=== PATIENT | female | born 1975 | race Caucasian/White ===

== ENCOUNTER → 2018-05-08 14:03 | Outpatient (CLI) | payer OTHER, SELFPAY ==
[2018-05-08 16:36] LABS: Alanine Aminotransferase 51 IU/L (9-52); Albumin 4.1 g/dL (3.5-5.0); Albumin Globulin Ratio 1.2 (1.0-2.8); Alkaline Phosphatase 132 U/L (38-126); Aspartate Aminotransferase 44 IU/L (14-36); Bilirubin Total 0.3 mg/dL (0.2-1.3); Blood Urea Nitrogen 6 mg/dL (7-17); Carbon Dioxide 30 mmol/L (22-32); Chloride 99 mmol/L (98-107); Cholesterol 232 mg/dL (140-199); Estimated Glomerular Filt Rate > 60.0 mL/min (>60); Globulin 3.3 g/dL (1.7-4.1); Glucose 132 mg/dL (70-100); HDL Cholesterol 51 mg/dL (40-60); HEMOLYSIS < 15 (0-50); LDL Cholesterol Calculated 132 mg/dL (<100); Potassium 3.1 mmol/L (3.4-5.1); Sodium 139 mmol/L (137-145); Total Protein 7.4 g/dL (6.3-8.2); Triglycerides 245 mg/dL (35-150)
[2018-05-08 17:39] LABS: Hemoglobin A1C% w Est Avg Glu 6.6 % (4.0-6.0)
== END ==
PROVIDERS: Visit Provider Internal Medicine
DX: E11.9 Type 2 diabetes mellitus without complications (principal); R94.5 Abnormal results of liver function studies; I10 Essential (primary) hypertension
CPT/HCPCS: 36415; 80053; 80061; 83036

== ENCOUNTER → 2018-08-28 15:43 | Outpatient (CLI) | payer OTHER, SELFPAY ==
--- NOTE | 2018-08-28 15:46 | DI.RAD.S_ITS ---
PROCEDURE: XR CHEST 2V INDICATIONS: chest pain TECHNIQUE: 2 views of the chest were acquired. COMPARISON: [facility], , CHEST 2 VIEW, 08/09/2011, 9:28. FINDINGS: Surgical changes and devices: None. Lungs and pleura: No pleural effusions or pneumothorax. Lungs are clear. Mediastinum: Mediastinal contours are normal. Heart size is normal. Bones and chest wall: No suspicious bony abnormalities. Soft tissues appear unremarkable. IMPRESSION: No trauma found, source of persistent pain is not seen. Dictated by: Jayson Molina M.D. on 08/28/2018 at 16:47 Approved by: Jayson Molina M.D. on 08/28/2018 at 16:47
[2018-08-28 16:39] LABS: Add Manual Diff / Slide Review NO; Basophils Percent Auto 0.6 % (0-2); Eosinophils Percent Auto 2.4 % (2-4); Hematocrit 36.7 % (36-46); Lymphocytes Percent Auto 44.2 % (25-40); Mean Corpuscular HGB Conc 32.7 % (30-36); Mean Corpuscular Hemoglobin 25.8 PG (26-34); Monocytes Percent Auto 4.9 % (3-14); Neutrophils Absolute Auto 4000 /uL (3000-5900); Neutrophils Percent Auto 47.9 % (50-75); Platelet Count 312 X10^3/uL (150-400); Red Blood Cell Count 4.64 X10^6/uL (4.0-5.2); White Blood Cell Count 8.4 X10^3/uL (4.5-11.0)
[2018-08-28 16:50] LABS: Hemoglobin A1C% w Est Avg Glu 7.2 % (4.0-6.0)
[2018-08-28 17:10] LABS: Alanine Aminotransferase 83 IU/L (9-52); Albumin Globulin Ratio 1.4 (1.0-2.8); Alkaline Phosphatase 106 U/L (38-126); Aspartate Aminotransferase 81 IU/L (14-36); BUN Creatinine Ratio 18.6 (6-22); Bilirubin Total 0.3 mg/dL (0.2-1.3); Blood Urea Nitrogen 13 mg/dL (7-17); C-Reactive Protein Quant 1.4 mg/dL (<1.0); Calcium 9.2 mg/dL (8.4-10.2); Carbon Dioxide 28 mmol/L (22-32); Chloride 103 mmol/L (98-107); Estimated Glomerular Filt Rate > 60.0 mL/min (>60); Globulin 2.9 g/dL (1.7-4.1); Glucose 136 mg/dL (70-100); HEMOLYSIS < 15 (0-50); Lipase 105 U/L (23-300); Sodium 142 mmol/L (137-145); Total Protein 6.9 g/dL (6.3-8.2)
[2018-08-28 17:35] LABS: Erythrocyte Sedimentation Rate 41 MM/HR (0-20)
[2018-08-28 17:38] LABS: TSH w/ Reflex to FT4 1.97 uIU/mL (0.47-4.68)
== END ==
PROVIDERS: PCP Family Medicine; Visit Provider Internal Medicine
DX: R07.9 Chest pain, unspecified (principal); E03.9 Hypothyroidism, unspecified; E11.9 Type 2 diabetes mellitus without complications; I10 Essential (primary) hypertension; R10.9 Unspecified abdominal pain
CPT/HCPCS: 36415; 71046; 80053; 83036; 83690; 84443; 85025; 85651; 86140

== ENCOUNTER → 2018-09-02 09:09 | Outpatient (CLI) | payer OTHER, SELFPAY ==
[2018-09-02 10:00] LABS: Creatine Kinase 41 U/L (30-135)
[2018-09-02 10:01] LABS: Cholesterol 193 mg/dL (140-199); HDL Cholesterol 43 mg/dL (40-60); HEMOLYSIS < 15 (0-50); LDL Cholesterol Calculated 127 mg/dL (<100); Potassium 4.3 mmol/L (3.4-5.1); Triglycerides 113 mg/dL (35-150)
== END ==
PROVIDERS: Internal Medicine; PCP Family Medicine; Visit Provider Physician Assistant
DX: E78.5 Hyperlipidemia, unspecified (principal); I10 Essential (primary) hypertension; M79.10 Myalgia, unspecified site
CPT/HCPCS: 36415; 80061; 82550; 84132

== ENCOUNTER → 2019-06-27 07:07 | Outpatient (CLI) | payer OTHER, SELFPAY ==
[2019-06-27 08:58] LABS: Alanine Aminotransferase 56 IU/L (9-52); Albumin 3.8 g/dL (3.5-5.0); Albumin Globulin Ratio 1.2 (1.0-2.8); Alkaline Phosphatase 143 U/L (38-126); Aspartate Aminotransferase 54 IU/L (14-36); Bilirubin Total 0.5 mg/dL (0.2-1.3); Blood Urea Nitrogen 12 mg/dL (7-17); Carbon Dioxide 28 mmol/L (22-32); Chloride 102 mmol/L (98-107); Estimated Glomerular Filt Rate > 60.0 mL/min (>60); Globulin 3.2 g/dL (1.7-4.1); Glucose 212 mg/dL (70-100); HEMOLYSIS < 15 (0-50); Potassium 4.1 mmol/L (3.4-5.1); Sodium 139 mmol/L (137-145)
== END ==
PROVIDERS: Visit Provider Specialist
DX: R74.8 Abnormal levels of other serum enzymes (principal)
CPT/HCPCS: 36415; 80053

== ENCOUNTER → 2019-07-09 06:58 | Outpatient (CLI) | payer OTHER, SELFPAY ==
[2019-07-09 08:34] LABS: Add Manual Diff / Slide Review NO; Basophils Absolute Auto 0 /uL (0-100); Basophils Percent Auto 0.6 % (0-2); Eosinophils Absolute Auto 200 /uL (0-450); Eosinophils Percent Auto 2.6 % (2-4); Hematocrit 37.5 % (36-46); Hemoglobin 12.3 g/dL (12.0-16.0); Lymphocytes Absolute Auto 3200 /uL (1100-4500); Lymphocytes Percent Auto 39.7 % (25-40); Mean Corpuscular HGB Conc 32.8 % (30-36); Mean Corpuscular Hemoglobin 26.1 PG (26-34); Mean Corpuscular Volume 79.6 fL (80-100); Monocytes Absolute Auto 400 /uL (0-900); Monocytes Percent Auto 4.5 % (3-14); Neutrophils Absolute Auto 4200 /uL (1500-7000); Neutrophils Percent Auto 52.6 % (50-75); Platelet Count 304 X10^3/uL (150-400)
[2019-07-09 09:07] LABS: Cholesterol 205 mg/dL (140-199); HDL Cholesterol 36 mg/dL (40-60); LDL Cholesterol Calculated 141 mg/dL (<100); Triglycerides 142 mg/dL (35-150)
[2019-07-09 09:34] LABS: TSH w/ Reflex to FT4 4.14 uIU/mL (0.47-4.68)
== END ==
PROVIDERS: Visit Provider Nurse Practitioner
DX: E03.9 Hypothyroidism, unspecified (principal); E11.9 Type 2 diabetes mellitus without complications; I10 Essential (primary) hypertension; Z87.442 Personal history of urinary calculi
CPT/HCPCS: 36415; 80061; 83036; 84443; 85025

== ENCOUNTER → 2019-07-24 13:11 | Outpatient (CLI) | payer OTHER, SELFPAY ==
[2019-07-24 14:10] LABS: Alanine Aminotransferase 97 IU/L (9-52); Albumin 3.9 g/dL (3.5-5.0); Albumin Globulin Ratio 1.2 (1.0-2.8); Alkaline Phosphatase 124 U/L (38-126); Aspartate Aminotransferase 84 IU/L (14-36); Bilirubin Total 0.7 mg/dL (0.2-1.3); Bilirubin Unconjugated 0.5 mg/dL (0.0-1.1); Globulin 3.2 g/dL (1.7-4.1); HEMOLYSIS < 15 (0-50); Total Protein 7.1 g/dL (6.3-8.2)
[2019-07-24 15:05] LABS: Free T3, Triiodothyronine Free 3.34 pg/mL (2.77-5.27); Free T4, Direct Thyroxine 1.33 ng/dL (0.78-2.19)
[2019-07-24 15:19] LABS: Thyroid Stimulating Hormone 2.11 uIU/mL (0.47-4.68)
[2019-07-26 16:13] LABS: Hepatitis A Antibody IgM NONREACTIVE; Hepatitis Acute Panel Interp 0.06; Hepatitis B Core Antibody IgM NONREACTIVE; Hepatitis B Surface Antigen NONREACTIVE; Hepatitis C Antibody NONREACTIVE
== END ==
PROVIDERS: Visit Provider Nurse Practitioner
DX: E03.9 Hypothyroidism, unspecified (principal); E11.9 Type 2 diabetes mellitus without complications; E66.9 Obesity, unspecified; I10 Essential (primary) hypertension; K75.81 Nonalcoholic steatohepatitis (NASH); R94.5 Abnormal results of liver function studies
CPT/HCPCS: 36415; 80074; 80076; 84439; 84443; 84481

== ENCOUNTER → 2019-11-17 08:41 | Outpatient (CLI) | payer OTHER, SELFPAY ==
[2019-11-17 09:15] LABS: Hemoglobin A1C% w Est Avg Glu 6.2 % (4.0-6.0)
[2019-11-17 09:26] LABS: Alanine Aminotransferase 48 IU/L (<35); Albumin 4.1 g/dL (3.5-5.0); Albumin Globulin Ratio 1.2 (1.0-2.8); Alkaline Phosphatase 136 U/L (38-126); Aspartate Aminotransferase 35 IU/L (14-36); Bilirubin Total 0.7 mg/dL (0.2-1.3); Bilirubin Unconjugated 0.6 mg/dL (0.0-1.1); Cholesterol 191 mg/dL (140-199); Globulin 3.3 g/dL (1.7-4.1); Glucose 112 mg/dL (70-100); HDL Cholesterol 45 mg/dL (40-60); HEMOLYSIS < 15 (0-50); LDL Cholesterol Calculated 131 mg/dL (<100); Total Protein 7.4 g/dL (6.3-8.2); Triglycerides 76 mg/dL (35-150)
[2019-11-17 10:08] LABS: Microalbumi Creatinin Ratio Ur 42.6 ug/mg CR (<30); Microalbumin Urine Random 11.9 mg/dL (0-1.6)
== END ==
PROVIDERS: PCP Nurse Practitioner; Referring Provider Nurse Practitioner; Visit Provider Nurse Practitioner
DX: E11.69 Type 2 diabetes mellitus with other specified complication (principal); E66.9 Obesity, unspecified; E78.5 Hyperlipidemia, unspecified; K75.81 Nonalcoholic steatohepatitis (NASH); Z68.34 Body mass index [BMI] 34.0-34.9, adult; E03.9 Hypothyroidism, unspecified; I10 Essential (primary) hypertension; R94.5 Abnormal results of liver function studies
CPT/HCPCS: 36415; 80061; 80076; 82043; 82570; 82947; 83036

== ENCOUNTER → 2020-06-24 06:51 | Outpatient (CLI) | payer OTHER, SELFPAY ==
[2020-06-24 08:48] LABS: Add Manual Diff / Slide Review NO; Basophils Absolute Auto 100 /uL (0-100); Basophils Percent Auto 0.8 % (0-2); Eosinophils Absolute Auto 200 /uL (0-450); Eosinophils Percent Auto 2.4 % (2-4); Hematocrit 38.2 % (36-46); Lymphocytes Absolute Auto 3100 /uL (1100-4500); Lymphocytes Percent Auto 44.6 % (25-40); Mean Corpuscular Hemoglobin 27.7 PG (26-34); Mean Corpuscular Volume 81.5 fL (80-100); Monocytes Absolute Auto 300 /uL (0-900); Neutrophils Absolute Auto 3300 /uL (1500-7000); Neutrophils Percent Auto 47.2 % (50-75); Platelet Count 300 X10^3/uL (150-400); Red Blood Cell Count 4.69 X10^6/uL (4.0-5.2); Red Cell Distribution Width 13.2 % (11.6-14.8)
[2020-06-24 08:52] LABS: Hemoglobin A1C% w Est Avg Glu 6.1 % (4.0-6.0)
[2020-06-24 09:03] LABS: Alanine Aminotransferase 32 IU/L (<35); Albumin 3.9 g/dL (3.5-5.0); Albumin Globulin Ratio 1.3 (1.0-2.8); Alkaline Phosphatase 103 U/L (38-126); Aspartate Aminotransferase 28 IU/L (14-36); BUN Creatinine Ratio 11.1 (6-22); Bilirubin Total 0.5 mg/dL (0.2-1.3); Blood Urea Nitrogen 6 mg/dL (7-17); Carbon Dioxide 30 mmol/L (22-32); Chloride 103 mmol/L (98-107); Cholesterol 182 mg/dL (140-199); Estimated Glomerular Filt Rate > 60.0 mL/min (>60); Glucose 108 mg/dL (70-100); HDL Cholesterol 46 mg/dL (40-60); HEMOLYSIS < 15 (0-50); LDL Cholesterol Calculated 115 mg/dL (<100); Potassium 4.5 mmol/L (3.4-5.1); Sodium 136 mmol/L (137-145); Total Protein 6.9 g/dL (6.3-8.2); Triglycerides 103 mg/dL (35-150)
[2020-06-24 09:23] LABS: Free T3, Triiodothyronine Free 3.33 pg/mL (2.77-5.27)
[2020-06-24 09:37] LABS: Thyroid Stimulating Hormone 3.35 uIU/mL (0.47-4.68)
[2020-06-24 09:49] LABS: Creatinine Urine Random 187.4 mg/dL
[2020-06-24 09:53] LABS: Microalbumi Creatinin Ratio Ur 20.2 ug/mg CR (<30); Microalbumin Urine Random 3.8 mg/dL (0-1.6)
== END ==
PROVIDERS: PCP Nurse Practitioner; Referring Provider Nurse Practitioner; Visit Provider Nurse Practitioner
DX: E03.9 Hypothyroidism, unspecified (principal); E11.9 Type 2 diabetes mellitus without complications; E66.9 Obesity, unspecified; G47.30 Sleep apnea, unspecified; I10 Essential (primary) hypertension; K75.81 Nonalcoholic steatohepatitis (NASH)
CPT/HCPCS: 36415; 80053; 80061; 82043; 82570; 83036; 84439; 84443; 84481; 85025

== ENCOUNTER → 2020-08-23 09:53 | Outpatient (CLI) | payer OTHER, SELFPAY ==
[2020-08-25 07:59] LABS: COVID19 Sendout Not Detected (Not Detect)
== END ==
PROVIDERS: PCP Nurse Practitioner; Visit Provider Physician Assistant
DX: Z11.59 Encounter for screening for other viral diseases (principal)
CPT/HCPCS: 87635

== ENCOUNTER → 2020-10-20 07:03 | Outpatient (CLI) | payer OTHER, SELFPAY ==
[2020-10-20 09:11] LABS: Alanine Aminotransferase 51 IU/L (<35); Albumin 4.1 g/dL (3.5-5.0); Albumin Globulin Ratio 1.2 (1.0-2.8); Alkaline Phosphatase 112 U/L (38-126); Aspartate Aminotransferase 38 IU/L (14-36); BUN Creatinine Ratio 19.7 (6-22); Bilirubin Total 0.4 mg/dL (0.2-1.3); Blood Urea Nitrogen 12 mg/dL (7-17); Calcium 8.9 mg/dL (8.4-10.2); Carbon Dioxide 30 mmol/L (22-32); Chloride 104 mmol/L (98-107); Cholesterol 219 mg/dL (140-199); Estimated Glomerular Filt Rate > 60.0 mL/min (>60); Globulin 3.5 g/dL (1.7-4.1); Glucose 123 mg/dL (70-100); HDL Cholesterol 49 mg/dL (40-60); HEMOLYSIS < 15 (0-50); LDL Cholesterol Calculated 153 mg/dL (<100); Potassium 4.7 mmol/L (3.4-5.1); Sodium 137 mmol/L (137-145); Total Protein 7.6 g/dL (6.3-8.2); Triglycerides 86 mg/dL (35-150)
[2020-10-20 09:23] LABS: Hemoglobin A1C% w Est Avg Glu 6.5 % (4.0-6.0)
[2020-10-20 09:48] LABS: Creatinine Urine Random 185.3 mg/dL
[2020-10-20 09:53] LABS: Microalbumi Creatinin Ratio Ur 18.3 ug/mg CR (<30); Microalbumin Urine Random 3.4 mg/dL (0-1.6)
== END ==
PROVIDERS: PCP Nurse Practitioner; Referring Provider Nurse Practitioner; Visit Provider Nurse Practitioner
DX: E03.9 Hypothyroidism, unspecified (principal); E11.69 Type 2 diabetes mellitus with other specified complication; E78.5 Hyperlipidemia, unspecified; I10 Essential (primary) hypertension
CPT/HCPCS: 36415; 80053; 80061; 82043; 82570; 83036

== ENCOUNTER → 2021-08-05 07:22 | Outpatient (CLI) | payer OTHER, SELFPAY ==
--- NOTE | 2021-08-05 07:24 | DI.US.S_ITS ---
PROCEDURE: US ABDOMEN COMPLETE INDICATIONS: EPIGASTRIC/LEFT UPPER/LEFT LOWER PAIN. BOWEL HABITS CHANGE. TECHNIQUE: Real-time scanning was performed of the abdominal and retroperitoneal organs, with image documentation. COMPARISON: [facility], US, ABDOMEN COMPLETE, 11/12/2015, 10:47. FINDINGS: Liver: The liver demonstrates prominent size. The liver demonstrates generalized moderately increased echogenicity. This decreases ultrasound sensitivity for detection of hepatic masses. Gallbladder: Removed. Biliary ducts: Intrahepatic bile ducts are non-dilated. Extrahepatic bile duct caliber measures 6 mm. Normal is 6-7 mm or less in diameter, or 10 mm or less post-cholecystectomy. Pancreas: Visualized portions of the pancreas are sonographically normal. Spleen: Spleen is normal in size and homogeneous in echotexture. Kidneys: Kidneys are normal in size and echotexture. Right kidney measures 11.3 cm long; left kidney measures 11.5 cm long. No hydronephrosis or nephrolithiasis. No solid masses. Aorta: Visualized aorta is normal in caliber at less than 3 cm. Iliacs: Proximal common iliac arteries are normal in caliber at less than 2.5 cm. IVC: Intrahepatic inferior vena cava is patent. Miscellaneous: No free abdominal fluid. IMPRESSION: No imaging explanation is found for this patient's presenting symptoms. Status post cholecystectomy, without biliary dilatation. Enlarged, fatty liver. Dictated by: Leif Parikh M.D. on 08/05/2021 at 9:15 Approved by: Leif Parikh M.D. on 08/05/2021 at 9:16
[2021-08-05 08:07] LABS: Add Manual Diff / Slide Review NO; Basophils Absolute Auto 100 /uL (0-100); Basophils Percent Auto 0.8 % (0-2); Eosinophils Absolute Auto 200 /uL (0-450); Eosinophils Percent Auto 2.4 % (2-4); Hematocrit 39.7 % (36-46); Hemoglobin 12.9 g/dL (12.0-16.0); Lymphocytes Absolute Auto 2600 /uL (1100-4500); Lymphocytes Percent Auto 38.9 % (25-40); Mean Corpuscular HGB Conc 32.5 % (30-36); Mean Corpuscular Hemoglobin 26.3 PG (26-34); Mean Corpuscular Volume 80.9 fL (80-100); Monocytes Absolute Auto 400 /uL (0-900); Monocytes Percent Auto 5.3 % (3-14); Neutrophils Absolute Auto 3600 /uL (1500-7000); Neutrophils Percent Auto 52.6 % (50-75); Platelet Count 268 X10^3/uL (150-400); Red Blood Cell Count 4.91 X10^6/uL (4.0-5.2); Red Cell Distribution Width 13.2 % (11.6-14.8); White Blood Cell Count 6.8 X10^3/uL (4.5-11.0)
[2021-08-05 08:14] LABS: Alanine Aminotransferase 91 IU/L (<35); Albumin 4.2 g/dL (3.5-5.0); Albumin Globulin Ratio 1.3 (1.0-2.8); Alkaline Phosphatase 132 U/L (38-126); Amylase 43 U/L (30-110); Aspartate Aminotransferase 78 IU/L (14-36); BUN Creatinine Ratio 19.7 (6-22); Bilirubin Total 0.6 mg/dL (0.2-1.3); Blood Urea Nitrogen 12 mg/dL (7-17); Calcium 9.3 mg/dL (8.4-10.2); Carbon Dioxide 30 mmol/L (22-32); Chloride 104 mmol/L (98-107); Cholesterol 193 mg/dL (140-199); Estimated Glomerular Filt Rate > 60.0 mL/min (>60); Globulin 3.3 g/dL (1.7-4.1); Glucose 164 mg/dL (70-100); HDL Cholesterol 45 mg/dL (40-60); HEMOLYSIS < 15 (0-50); LDL Cholesterol Calculated 129 mg/dL (<100); Lipase 81 U/L (23-300); Potassium 4.2 mmol/L (3.4-5.1); Sodium 140 mmol/L (137-145); Total Protein 7.5 g/dL (6.3-8.2); Triglycerides 97 mg/dL (35-150)
[2021-08-05 08:40] LABS: Free T3, Triiodothyronine Free 4.49 pg/mL (2.77-5.27); Free T4, Direct Thyroxine 1.38 ng/dL (0.78-2.19)
[2021-08-05 08:54] LABS: Thyroid Stimulating Hormone 2.91 uIU/mL (0.47-4.68)
[2021-08-05 09:50] LABS: Creatinine Urine Random 256.1 mg/dL
[2021-08-05 09:54] LABS: Microalbumi Creatinin Ratio Ur 29.6 ug/mg CR (<30); Microalbumin Urine Random 7.6 mg/dL (0-1.6)
== END ==
PROVIDERS: PCP Nurse Practitioner; Referring Provider Nurse Practitioner; Visit Provider Nurse Practitioner
DX: R10.13 Epigastric pain (principal); R10.32 Left lower quadrant pain; R10.12 Left upper quadrant pain; R19.4 Change in bowel habit; E03.9 Hypothyroidism, unspecified; E11.69 Type 2 diabetes mellitus with other specified complication; E11.9 Type 2 diabetes mellitus without complications; E78.5 Hyperlipidemia, unspecified; I10 Essential (primary) hypertension; K75.81 Nonalcoholic steatohepatitis (NASH); Z71.3 Dietary counseling and surveillance; Z90.49 Acquired absence of other specified parts of digestive tract
CPT/HCPCS: 36415; 76700; 80053; 80061; 82043; 82150; 82570; 83036; 83690; 84439; 84443; 84481; 85025

== ENCOUNTER → 2021-11-26 07:39 | Outpatient (CLI) | payer OTHER, SELFPAY ==
[2021-11-26 13:17] LABS: Clostridium Difficile Tox PCR Negative for C. diff (Negative)
[2021-11-28 19:16] LABS: Cryptosporidium EIA Negative (Negative)
== END ==
PROVIDERS: PCP Nurse Practitioner; Referring Provider Internal Medicine Gastroenterology; Visit Provider Internal Medicine Gastroenterology
DX: R10.9 Unspecified abdominal pain (principal); R19.7 Diarrhea, unspecified; R19.8 Other specified symptoms and signs involving the digestive system and abdomen
CPT/HCPCS: 87045; 87328; 87329; 87493; 87899

== ENCOUNTER → 2022-02-15 08:02 | Outpatient (CLI) | payer OTHER, SELFPAY ==
--- NOTE | 2022-02-15 08:03 | DI.ECHO.S_ITS ---
[facility] +---------+ : : [address] : [address] : : : : [id number] : : : : Phone: [phone]+ Echocardiogram Report + + :Name: ROMARIO LOCKHART I Study Date: 02/15/2022 Height: 63 in : :[facility] ReadingLocation: Weight: 185 lb : : Gender: Female BSA: 1.9 m2 : :: 1975 Age: 46 yrs BP: 168/100 mmHg: :Reason For Study: HYPERTENSION : :Ordering Physician: BETH, : :ABHAY Performed By: Kiana Ruvalcaba : :Referring: ABHAY CAMPOS : + + Interpretation Summary The ejection fraction is estimated to be 60-65%. Diastolic parameters suggest probable normal left ventricular diastolic function and normal filling pressures. The right ventricle is normal in size and function. No significant valvular abnormalities. Unable to estimate PASP. Compared to the prior study dated 11/12/2015, no significant change. Procedure: A two-dimensional transthoracic echocardiogram with color flow and Doppler was performed. The study quality was technically adequate. Comparison is made with the echocardiogram of 11/12/2015. The patient was in sinus rhythm with heart rates between 72-82 bpm during the exam. Left Ventricle: The left ventricle is normal in size and wall thickness. The ejection fraction is estimated to be 60-65%. Diastolic parameters suggest probable normal left ventricular diastolic function and normal filling pressures. Right Ventricle: The right ventricle is normal in size and function. Atria: The left atrial size is normal. Right atrial size is normal. There is no Doppler evidence for an interatrial shunt. Mitral Valve: The mitral valve is normal in structure and function. There is trace mitral regurgitation. Aortic Valve: The aortic valve is trileaflet. The aortic valve opens well. There is no aortic valve stenosis. No aortic regurgitation is present. Tricuspid Valve: The tricuspid valve is normal in structure and function. There is a trace or physiologic amount of tricuspid regurgitation. Pulmonic Valve: The pulmonic valve leaflets are thin and pliable; valve motion is normal. There is no pulmonic valvular regurgitation. Great Vessels: The aortic root is normal size. The dimensions of the ascending aorta are normal. The IVC is of normal diameter and collapses greater than 50% with a sniff. This suggests a low right atrial pressure of 3 mm Hg. Pericardium/ Pleura There is no pericardial effusion. There is no pleural effusion. MMode/2D Measurements & Calculations LVIDd: 4.6 cm LVOT diam: 2.0 cm LVIDs: 3.2 cm Ao root diam: 2.9 cm FS: 30.9 % asc Aorta Diam: 3.2 cm IVSd: 0.76 cm Ao Arch Diam (Prox Trans): 2.8 cm LVPWd: 1.0 cm LV ho. diameter/BSA (cm/m^2): 2.5 LV sys. diameter/BSA (cm/m^2): 1.7 LA A2 area: 16.5 cm2 RA long axis: 4.8 cm LA A4 area: 14.8 cm2 RA area: 13.4 cm2 LA length (vol): 5.4 cm RA vol: 31.5 ml LA vol: 38.0 ml RA : 16.8 ml/m2 LA vol index: 20.3 ml/m2 IVC diam: 1.7 cm RVD1 (basal): 2.9 cm TAPSE: 2.2 cm Doppler Measurements & Calculations Ao V2 max: 138.3 cm/sec LVOT Max Dante: 108.2 cm/sec Ao V2 mean: 98.8 cm/sec LV V1 max P.7 mmHg Ao max P.6 mmHg LV V1 VTI: 20.7 cm Ao mean P.3 mmHg DENA(I,D): 2.4 cm2 Ao V2 VTI: 27.1 cm DENA(V,D): 2.5 cm2 sev ratio: 0.76 DENA indexed to BSA (cm^2/m^2): 1.3 MV E max dante: 68.3 cm/sec PA V2 max: 83.4 cm/sec MV A max dante: 52.7 cm/sec PA V2 mean: 57.1 cm/sec MV E/A: 1.3 PA mean P.5 mmHg Med Peak E' Dante: 5.9 cm/sec PA pr(Accel): 22.5 mmHg E/E' med: 11.5 Lat Peak E' Dante: 10.3 cm/sec E/E' lat: 6.7 E/e' average: 9.1 MV dec time: 0.23 sec SV(LVOT): 65.8 ml Reading Physician:10:42 AM
== END ==
PROVIDERS: PCP Nurse Practitioner; Referring Provider Nurse Practitioner; Visit Provider Nurse Practitioner
DX: I10 Essential (primary) hypertension (principal); E11.69 Type 2 diabetes mellitus with other specified complication; E78.5 Hyperlipidemia, unspecified
CPT/HCPCS: 93306

== ENCOUNTER → 2022-04-14 07:18 | Outpatient (CLI) | payer OTHER, SELFPAY ==
[2022-04-14 08:36] LABS: Alanine Aminotransferase 103 IU/L (<35); Albumin 4.1 g/dL (3.5-5.0); Albumin Globulin Ratio 1.2 (1.0-2.8); Alkaline Phosphatase 172 U/L (38-126); Aspartate Aminotransferase 81 IU/L (14-36); BUN Creatinine Ratio 22.6 (6-22); Bilirubin Total 0.8 mg/dL (0.2-1.3); Blood Urea Nitrogen 12 mg/dL (7-17); Calcium 8.6 mg/dL (8.4-10.2); Carbon Dioxide 25 mmol/L (22-32); Chloride 102 mmol/L (98-107); Cholesterol 202 mg/dL (140-199); Estimated Glomerular Filt Rate > 60 mL/min (>60); Globulin 3.4 g/dL (1.7-4.1); Glucose 273 mg/dL (70-100); HDL Cholesterol 44 mg/dL (40-60); HEMOLYSIS < 15 (0-50); LDL Cholesterol Calculated 139 mg/dL (<100); Potassium 4.1 mmol/L (3.4-5.1); Sodium 136 mmol/L (137-145); Total Protein 7.5 g/dL (6.3-8.2); Triglycerides 94 mg/dL (35-150)
[2022-04-14 08:45] LABS: Hemoglobin A1C% w Est Avg Glu 11.6 % (4.0-6.0)
== END ==
PROVIDERS: PCP Nurse Practitioner; Referring Provider Nurse Practitioner; Visit Provider Nurse Practitioner
DX: E11.69 Type 2 diabetes mellitus with other specified complication (principal); E78.5 Hyperlipidemia, unspecified; R03.0 Elevated blood-pressure reading, without diagnosis of hypertension
CPT/HCPCS: 36415; 80053; 80061; 83036

== ENCOUNTER → 2022-05-04 10:58 | Outpatient (CLI) | payer OTHER, SELFPAY ==
[2022-05-04 11:38] LABS: Strep Grp A by PCR Rapid Negative (Negative)
== END ==
PROVIDERS: PCP Nurse Practitioner; Visit Provider Nurse Practitioner
DX: J02.9 Acute pharyngitis, unspecified (principal)
CPT/HCPCS: 87070; 87651

== ENCOUNTER → 2022-12-08 08:42 | Outpatient (CLI) | payer OTHER, SELFPAY ==
[2022-12-08 10:18] LABS: Add Manual Diff / Slide Review NO; Basophils Absolute Auto 0 /uL (0-100); Basophils Percent Auto 0.6 % (0-2); Eosinophils Absolute Auto 100 /uL (0-450); Eosinophils Percent Auto 1.9 % (2-4); Hematocrit 39.3 % (36-46); Hemoglobin 12.8 g/dL (12.0-16.0); Lymphocytes Absolute Auto 3300 /uL (1100-4500); Lymphocytes Percent Auto 44.5 % (25-40); Mean Corpuscular HGB Conc 32.7 % (30-36); Mean Corpuscular Hemoglobin 26.7 PG (26-34); Mean Corpuscular Volume 81.9 fL (80-100); Monocytes Absolute Auto 300 /uL (0-900); Neutrophils Absolute Auto 3600 /uL (1500-7000); Platelet Count 280 X10^3/uL (150-400); Red Cell Distribution Width 13.5 % (11.6-14.8); White Blood Cell Count 7.4 X10^3/uL (4.5-11.0)
[2022-12-08 10:28] LABS: Hemoglobin A1C% w Est Avg Glu 9.3 % (4.0-6.0)
[2022-12-08 10:50] LABS: Alanine Aminotransferase 93 IU/L (<35); Albumin 4.1 g/dL (3.5-5.0); Albumin Globulin Ratio 1.3 (1.0-2.8); Alkaline Phosphatase 140 U/L (38-126); Aspartate Aminotransferase 76 IU/L (14-36); BUN Creatinine Ratio 21.7 (6-22); Bilirubin Total 0.6 mg/dL (0.2-1.3); Blood Urea Nitrogen 10 mg/dL (7-17); Calcium 8.8 mg/dL (8.4-10.2); Carbon Dioxide 28 mmol/L (22-32); Chloride 101 mmol/L (98-107); Cholesterol 207 mg/dL (140-199); Estimated Glomerular Filt Rate > 60 mL/min (>60); Globulin 3.2 g/dL (1.7-4.1); Glucose 179 mg/dL (70-100); HDL Cholesterol 45 mg/dL (40-60); HEMOLYSIS < 15 (0-50); LDL Cholesterol Calculated 142 mg/dL (<100); Potassium 4.2 mmol/L (3.4-5.1); Sodium 136 mmol/L (137-145); Total Protein 7.3 g/dL (6.3-8.2); Triglycerides 99 mg/dL (35-150)
[2022-12-08 10:58] LABS: Free T3, Triiodothyronine Free 3.83 pg/mL (2.77-5.27); Free T4, Direct Thyroxine 1.37 ng/dL (0.78-2.19)
[2022-12-08 11:11] LABS: Thyroid Stimulating Hormone 1.85 uIU/mL (0.47-4.68)
[2022-12-08 16:20] LABS: Creatinine Urine Random 241.5 mg/dL; Microalbumi Creatinin Ratio Ur 37.2 ug/mg CR (<30)
== END ==
PROVIDERS: PCP Nurse Practitioner; Referring Provider Nurse Practitioner; Visit Provider Nurse Practitioner
DX: Z00.00 Encounter for general adult medical examination without abnormal findings (principal); E11.69 Type 2 diabetes mellitus with other specified complication; E78.5 Hyperlipidemia, unspecified; F41.8 Other specified anxiety disorders; I10 Essential (primary) hypertension
CPT/HCPCS: 36415; 80053; 80061; 82043; 82570; 83036; 84439; 84443; 84481; 85025

== ENCOUNTER → 2022-12-20 10:40 | Outpatient (CLI) | payer OTHER, SELFPAY | PROVIDERS: PCP Nurse Practitioner; Visit Provider Nurse Practitioner | DX: N89.8 Other specified noninflammatory disorders of vagina (principal) | CPT/HCPCS: 87070; 87205 ==

== ENCOUNTER → 2022-12-23 15:53 | Outpatient (CLI) | payer OTHER, SELFPAY ==
--- NOTE | 2022-12-23 15:55 | DI.US.S_ITS ---
PROCEDURE: US PELVIC COMPLETE INDICATIONS: BLEEDING X 3 MONTHS TECHNIQUE: Real-time scanning was performed of the pelvic organs, with image documentation. Additional endovaginal scanning was necessary due to incomplete visualization of the adnexal and endometrial structures by transabdominal scanning. COMPARISON: [facility], , PELVIC COMPLETE, 05/19/2015, 13:08. [facility], PELVIC COMPLETE, 09/18/2009, 10:29. [facility], PELVIC COMPLETE, 02/27/2009, 11:02. FINDINGS: Uterus: Uterus is anteverted and normal in size at 8.5 x 4.4 x 5.9 cm. The myometrium is homogeneous. The endometrium measures 21.7 mm combined thickness. Endometrium appears heterogeneous. Nabothian cysts are seen in cervix. Ovaries: Not visualized. Patient had history of oophorectomy bilaterally. Other: No pathologic free abdominal or pelvic fluid. IMPRESSION: 1. Diffuse heterogeneous and thickened endometrium. Differential diagnoses are endometrial hyperplasia versus endometrial cancer. Recommend gynecological follow-up and endometrial sampling. 2. Ovaries are not visualized. The patient has history of oophorectomy bilaterally. 3. No free fluid in pelvis. We strive to produce accurate, complete, and clear reports of imaging services. To assist us in improving patient care, this report was composed using standard report templates and voice recognition software. Therefore, it may contain abnormal punctuation, insertions and/or omissions. Occasional wrong-word or sound-alike substitutions may occur. Though we review the report and make efforts to correct it, we do recommend that the report be read carefully in proper context to recognize any text inaccuracies. Dictated by: Carola Brady M.D. on 12/24/2022 at 8:47 Approved by: Carola Brady M.D. on 12/24/2022 at 8:51
--- NOTE | 2022-12-23 15:55 | DI.MG.S_ITS ---
BILATERAL DIGITAL SCREENING MAMMOGRAM 3D/2D WITH CAD: 12/23/2022 CLINICAL: Routine screening. Comparison is made to exams dated: 11/18/2015 mammogram and 11/15/2014 mammogram - [facility]. Both breasts are heterogeneously dense, which may obscure small masses (category c / 51-75% glandular tissue). Current study was also evaluated with a Computer Aided Detection (CAD) system. There is a focal asymmetry in the left breast at 1 o'clock posterior depth. No other significant masses, calcifications, or other findings are seen in either breast. IMPRESSION: INCOMPLETE: NEEDS ADDITIONAL IMAGING EVALUATION The focal asymmetry in the left breast is indeterminate. Additional views with possible ultrasound are recommended. Based on the Tyrer Cuzick model (a risk assessment model) the patient's lifetime risk is 7.0% and her 10 year risk is 1.6%. According to the ACR, ACS, and NCCN guidelines, an annual breast MRI exam along with mammogram is recommended if the patient's lifetime risk is 20% or greater. This exam was interpreted at Station ID: [id number]. NOTE: For mammograms, a report in lay terms will be sent to the patient. Approximately 15% of breast malignancies will not be visualized mammographically. In the management of a palpable breast mass, a negative mammogram must not discourage biopsy of a clinically suspicious lesion. Electronically Signed By: Philomena draper/wilner:12/24/2022 08:30:32 letter sent: Additional Imaging Needed ACR BI-RADS Category 0: Incomplete 3340F
== END ==
PROVIDERS: PCP Nurse Practitioner; Referring Provider Nurse Practitioner; Visit Provider Nurse Practitioner
DX: Z12.31 Encounter for screening mammogram for malignant neoplasm of breast (principal); N92.0 Excessive and frequent menstruation with regular cycle; R93.89 Abnormal findings on diagnostic imaging of other specified body structures
CPT/HCPCS: 76830; 76856; 77063; 77067

== ENCOUNTER → 2023-01-18 09:27 | Outpatient (CLI) | payer OTHER, SELFPAY ==
--- NOTE | 2023-01-18 | DI.MG.S_ITS ---
UNILATERAL LEFT DIGITAL DIAGNOSTIC MAMMOGRAM 3D/2D WITH ADDITIONAL VIEWS: 01/18/2023 CLINICAL: Additional evaluation requested from prior study. Comparison is made to exams dated: 12/23/2022 mammogram, 11/18/2015 mammogram, and 11/15/2014 mammogram - [facility]. The left breast is heterogeneously dense, which may obscure small masses (category c / 51-75% glandular tissue). The focal asymmetry in the left breast at 1 o'clock posterior depth is seen in additional views. No other significant masses or calcifications are seen in the breast. IMPRESSION: INCOMPLETE: NEEDS ADDITIONAL IMAGING EVALUATION The focal asymmetry in the left breast is indeterminate. A targeted ultrasound of the left breast is recommended and will be performed immediately following this exam. Based on the Tyrer Cuzick model (a risk assessment model) the patient's lifetime risk is 7.0% and her 10 year risk is 1.6%. According to the ACR, ACS, and NCCN guidelines, an annual breast MRI exam along with mammogram is recommended if the patient's lifetime risk is 20% or greater. This exam was interpreted at Station ID: [id number]. NOTE: For mammograms, a report in lay terms will be sent to the patient. Approximately 15% of breast malignancies will not be visualized mammographically. In the management of a palpable breast mass, a negative mammogram must not discourage biopsy of a clinically suspicious lesion. Electronically Signed By: Philomena Baxter M.D. lk/:01/18/2023 09:50:39 ACR BI-RADS Category 0: Incomplete 3340F
--- NOTE | 2023-01-18 | DI.US.S_ITS ---
LIMITED ULTRASOUND OF LEFT BREAST AND AXILLA: 01/18/2023 CLINICAL: Patient returns today to evaluate an asymmetry in the left breast. Comparison is made to exams dated: 01/18/2023 mammogram, 12/23/2022 mammogram, and 11/18/2015 mammogram - [facility]. Color flow ultrasound of the left breast axilla was performed on the areas of interest. Linares scale images of the real-time examination were reviewed. There is a 1.2 cm x 0.5 cm x 0.9 cm oval septated cyst in the left breast at 2 o'clock middle depth. This oval cyst is of mixed echogenicity with internal echoes and posterior acoustic enhancement. This correlates with mammography findings. Color flow imaging demonstrates that there is no vascularity present. IMPRESSION: PROBABLY BENIGN The 1.2 cm x 0.5 cm x 0.9 cm oval cyst in the left breast likely represents a complicated cyst and is probably benign. A follow-up ultrasound in 6 months is recommended to demonstrate stability. This exam was interpreted at Station ID: [id number]. Electronically Signed By: Philomena draper/:01/18/2023 10:21:22 letter sent: Followup Recommended Ultrasound BI-RADS: 3 Probably benign
== END ==
PROVIDERS: PCP Nurse Practitioner; Referring Provider Nurse Practitioner; Visit Provider Nurse Practitioner
DX: R92.8 Other abnormal and inconclusive findings on diagnostic imaging of breast (principal); N60.02 Solitary cyst of left breast
CPT/HCPCS: 76642; 77065; G0279

== ENCOUNTER 2023-02-04 09:02 | Day surgery (SDC) | payer OTHER, SELFPAY ==
[2023-02-03 12:00] VITALS: BMI 31.9
[2023-02-04] VITALS (9 sets, daily range): BP systolic 130–178; BP diastolic 81–105; PULSE 80–92; RESP 12–100; TEMP 36.3–36.8; O2SAT 95–100; BMI 31.9
[2023-02-04] MEDS: LACTATED RINGERS 1,000 ML 42 ML IV (09:39)
--- NOTE | 2023-02-04 11:07 | PM.PREOP ---
Pre-operative Note COVID-19 COVID-19 status: Not tested Criteria for continued procedure: Non-surgical alternatives not available or appropriate per current SOC Interval Note History & Physical reviewed/Exam performed by Physician: Yes Changes to H&P: No
--- NOTE | 2023-02-04 11:22 | PM.HP.1 ---
History of Present Illness History of Present Illness Date Patient Seen: 02/04/23 Time Patient Seen: 11:22 Chief complaint: [facility] [place] Narrative: The patient presents for colorectal screening. They have never had any previous examination for such. No personal or family history of colon cancer. On further history denies any recent gastrointestinal symptoms. No nausea, vomiting loss of appetite, unexplained weight loss, change in bowel habits, or blood per rectum. [facility] Medical History Abnormal liver function tests (07/05/11) ADHD (attention deficit hyperactivity disorder) (2012) Adult situational stress disorder (07/02/16) Allergic rhinitis (12/25/15) Benign essential hypertension BMI 34.0-34.9,adult Chicken pox (1978) Cyst of finger Depression with anxiety Diabetes mellitus type 2, uncomplicated Dysthymia (12/25/15) Elevated blood pressure reading Exercise-induced asthma Hayfever (1999) History of kidney stones (06/30/11) History of migraine Hot flashes due to menopause Hyperlipidemia associated with type 2 diabetes mellitus Hypothyroidism (acquired) (08/05/11) Irregular periods/menstrual cycles (1989) Lactose intolerance (12/25/15) Migraines (1995) MYRICK (nonalcoholic steatohepatitis) MYRICK (nonalcoholic steatohepatitis) Obesity, Class II, BMI 35-39.9 Ovarian cyst (1999) Sleep apnea (2011) Surgical History Anesthesia Status post bilateral salpingo-oophorectomy (BSO) (08/06/16) Status post cholecystectomy (2008) Status post dilation and curettage (1993) Status post tubal ligation (2003) Family History Father Diabetes mellitus Heart disease Hypertension High cholesterol Grandfather Diabetes mellitus Grandmother Diabetes mellitus Mother Age: 73 Hypertension Mental health problem Gallstones Grandmother Diabetes mellitus Sister Age: 54 Diabetes mellitus Hypertension High cholesterol Lymphoma Social History marital status: number of children: 3 household members: spouse and children lives independently: Yes caregiver/support person: No housing: house pets and animals: Yes education level: college occupational status: employed current occupational exposures/hazards: No kristan/evangelical: None travel history: recurrent leisure activities: reading and other Smoking Status: Never smoker Tobacco: How many years used: 0 quit status: quit date established second hand exposure: No alcohol intake: never substance use type: does not use Meds Home Medications and Allergies Home Medications Medication Instructions Recorded Confirmed Type Glucose: Home Monitor ea NA BID ##1 08/10/17 01/25/23 Rx Lancets ea NA BID ##200 08/10/17 01/25/23 Rx Test Strips - Freestyle str NA BID ##200 08/10/17 01/25/23 Rx bupropion HCl 150 mg 24 hr tablet, 150 mg PO QAM #90 tabs 08/19/21 02/04/23 Rx extended release albuterol sulfate 90 mcg/actuation 2 puff inhalation Q6H PRN 03/10/22 02/04/23 Rx aerosol inhaler shortness of breath or wheezing #8.5 grams lisinopril 20 mg tablet 20 mg PO DAILY #90 tabs 04/15/22 02/04/23 Rx estradiol 0.1 mg/24 hr semiweekly See Rx Instructions .Route 09/27/22 02/04/23 Rx transdermal patch .COMPLEX #24 patches glipizide 5 mg tablet See Rx Instructions .Route 11/25/22 02/04/23 Rx .COMPLEX #180 tabs rosuvastatin 5 mg tablet 5 mg PO DAILY #90 tabs 12/20/22 02/04/23 Rx fluconazole 150 mg tablet 150 mg PO Q3D 2 doses #2 tabs 01/18/23 02/04/23 Rx (Diflucan) omeprazole 20 mg capsule,delayed 20 mg PO PRN PRN Heartburn 02/04/23 02/04/23 History release progesterone micronized 100 mg 200 mg PO BEDTIME 02/04/23 02/04/23 History capsule Allergies Allergy/AdvReac Type Severity Reaction Status Date / Time bee venom protein (honey bee) Allergy Intermediate Swelling Verified 02/04/23 09:26 Penicillins Allergy Unknown Family Verified 02/04/23 09:26 history of allergic reaction. Never had it. diphenhydramine AdvReac Severe SOB Verified 02/04/23 09:26 metformin AdvReac Severe Abdominal Verified 02/04/23 09:26 Pain Exam Vital Signs (past 8 hours): - 02/04/23 09:26 Temperature 97.6 F Pulse Rate 86 Respiratory Rate 16 Blood Pressure 152/97 H Pulse Oximetry 100 Oxygen Delivery Method Room Air Oxygen Delivery Method Room Air Narrative Exam Narrative: General adult woman alert oriented no acute distress abdomen soft nontender nondistended Assessment & Plan Assessment & Plan narrative: The patient requires colorectal screening and colonoscopy is recommended. Technical details were discussed. Risks, benefits, alternatives explained. Risks including but not limited to myocardial infarction, aspiration, bleeding, pain, missed lesion, incomplete examination, need for further radiographic studies, colonic perforation, and need for major abdominal surgery were discussed. All questions were answered to their satisfaction, and they are in agreement with this plan.
--- NOTE | 2023-02-04 11:38 | SUR.OPER ---
Lithotomy on padded OR bed, head on pillow, arms secured on padded arm boards at <90 degrees abduction. Legs secured in padded yellow fins stirrups.
--- NOTE | 2023-02-04 11:59 | PM.OP.COLON ---
Operative Date/Time/Diagnoses Date of procedure: 02/04/23 Time of procedure: 11:59 Pre-op diagnosis: Colorectal screening Post-op diagnosis: other (Colonic polyp x1) Procedure & Clinicians Study performed: Colonoscopy and polypectomy Same procedure as scheduled: Yes Indications: Colorectal screening Surgeon: Rickey Ashley Procedure Notes Procedure in detail: The history and physical was performed/updated and the patient is ASA class is 3. The procedure was discussed in detail with the patient. Potential risks complications including infection, bleeding, missed diagnosis, perforation, need for surgery, and were explained. Their questions were answered and informed consent was obtained. Patient was brought to the procedure room and placed standard monitoring equipment. The patient's vital signs were monitored continuously throughout the entire procedure. Prior to starting time-out was performed. The patient was placed in the left lateral recumbent position. Procedural sedation was administered by anesthesia. Examination began with a thorough inspection of the perianal area there was no evidence of fissures, fistulae, external hemorrhoids or cutaneous malignancy. The colonoscopy scope was then placed into the anal canal and was advanced to the cecum, which was identified by the ileocecal valve, the appendiceal orifice and the confluence of the taenia. The scope was then slowly withdrawn examining colon thoroughly in all directions, irrigating it of any residual stool. The quality of the prep was poor. Within the sigmoid colon at approximately 20 m from the anal verge there was a 8 mm flat polyp which was removed in pieces using by forceps. Internal hemorrhoids were noted. The patient tolerated the procedure well. They will be discharged once criteria are met. The withdrawl time was 8 minutes. Specimen(s): other (Sigmoid polyp) Impression: Colonic polyp Post-procedure Plan for aftercare: Follow-up is dependent on pathology findings Disposition: same day surgery
--- NOTE | 2023-02-04 12:30 | PATH_ITS ---
[facility] Accession Number: [id number] No. of containers..04 Tissue . 01 Material submitted: . PART A: sigmoid colon - SIGMOID COLON POLYP PART B: endometrium - ENDOMETRIAL CURRETINGS PART C: endocervix - ENDOCERVICAL CURETTINGS PART D: endometrium - ENDOMETRIAL POLYP . 01 Clinical history: . B-D) R/O ADENOCARCINOMA . 01 Diagnosis: A. Sigmoid Colon Polyp: Hyperplastic polyp. . B. Endometrium, Curettage: Dyssynchronous endometrium with focal stromal breakdown and features suggestive of endometrial polyp. Negative for atypical hyperplasia or malignancy. . C. Endocervix, Curettage: Strips of endocervical epithelium with no diagnostic abnormality. No evidence of neoplasm. . D. Endometrial Polyp: Consistent with endometrial polyp. Negative for atypical hyperplasia or malignancy. [facility] 02/10/2023 1601 Local . 01 Electronically signed: . Robbie Maldonado MD, PhD, Pathologist NPI- [id number] . 01 Gross description: . Part A: SIGMOID COLON POLYP: Received in formalin are 2 fragment(s) of pascual, soft tissue measuring 0.3 x 0.3 x 0.2 cm to 0.6 x 0.3 x 0.2 cm submitted entirely in 1 cassette(s) Part B: ENDOMETRIAL CURRETINGS : Received in formalin are minute fragments of mucoid and hemorrhagic material measuring 1.0 x 1.0 x 0.4 cm in aggregate. Submitted in toto in 1 cassette. Part C: ENDOCERVICAL CURETTINGS: Received in formalin are minute fragments of mucoid and hemorrhagic material measuring 0.4 x 0.4 x 0.2 cm in aggregate. Submitted in toto in 1 cassette. Part D: ENDOMETRIAL POLYP: Received in formalin is 1 fragment of pascual soft tissue measuring 1.0 x 0.9 x 0.3 cm. Specimen is submitted in its entirety in 1 cassette. /MARLEN 02/07/20231928 Local . 01 Pathologist provided ICD-10: N95.0, K63.5 . 01 CPT . 198557, 500742, 768741, 116557 Specimen Comment: A courtesy copy of this report has been sent to [phone] Performed at: 01 [facility] [address] [place] [address], [place], [place] [id number] MD Raghu Hickman MD Phone: [phone]
--- NOTE | 2023-02-04 12:43 | PM.GYNOP.1 ---
Operative Date/Time/Diagnoses Date of procedure: 02/04/23 Time of procedure: 12:00 Pre-op diagnosis: Post menopausal bleeding Thickened endometrial stripe on ultrasound Post-op diagnosis: same Procedure & Clinicians Procedure: Procedures Operation Date: 02/04/23 11:00 Actual Procedure Side Surgeon p Hysteroscopy w/ biopsy, Dilation and Curettage of the uterus Troy Miller MD s Eliecer Ashley MD Indications: Kate is a 47-year-old 8 para 3, LMP at age 38 when she underwent bilateral salpingo oophorectomy due to severe PMS symptoms.? She is been on hormone replacement therapy since that time with an estradiol patch 0.1 mg/24 hours and Prometrium 100 mg p.o. HS which was recently increased to 200 mg p.o. HS.? Patient had occasional episodes of bleeding in the 1st few years following initiation of HRT but has been bleeding continuously since 09/22/2022.? Pelvic ultrasound performed 12/23/2022 shows: PROCEDURE:? US PELVIC COMPLETE ? INDICATIONS:? BLEEDING X 3 MONTHS ? TECHNIQUE:? Real-time scanning was performed of the pelvic organs, with image documentation.? Additional endovaginal scanning was necessary due to incomplete visualization of the adnexal and endometrial structures by transabdominal scanning.? ? COMPARISON:? [facility], PELVIC COMPLETE, 05/19/2015, 13:08.? [facility], PELVIC COMPLETE, 09/18/2009, 10:29.? [facility], PELVIC COMPLETE, 02/27/2009, 11:02. ? FINDINGS:? ?? Uterus:? Uterus is anteverted and normal in size at 8.5 x 4.4 x 5.9 cm. The myometrium is homogeneous. ? The endometrium measures 21.7 mm combined thickness.? Endometrium appears heterogeneous.? Nabothian cysts are seen in cervix. ? Ovaries:? Not visualized.? Patient had history of oophorectomy bilaterally. ? Other:? No pathologic free abdominal or pelvic fluid.? ? IMPRESSION:? ? 1. Diffuse heterogeneous and thickened endometrium.? Differential diagnoses are endometrial hyperplasia versus endometrial cancer.? Recommend gynecological follow-up and endometrial sampling. ? 2. Ovaries are not visualized.? The patient has history of oophorectomy bilaterally. ? 3. No free fluid in pelvis. After discussing all options for further evaluation and treatment with Dr. Mariah Jeffery, the patient has made the decision to proceed with hysteroscopy/possible biopsies/dilation and curettage of the uterus.? She presents today for her scheduled surgery. Surgeon: Troy Miller Anesthesia Type: General Operative Notes Findings: Examination under anesthesia shows the patient is actively bleeding dark blood from the cervical os. The cervical os itself is dilated and the cervix appears to be parous. Within the endometrial cavity, there is an exophytic lesion arising from the right lateral aspect of the lower uterine segment endometrium otherwise the endometrial cavity appears largely unremarkable. Closure Type: not applicable Specimen(s): endometrial curettings, endometrial polyp and other (Endocervical curettings) Estimated blood loss (mL): 15 Blood products transfused: none Procedure in detail: With the patient under satisfactory general anesthesia in the modified dorsal lithotomy position, the vagina, perineum, and lower abdomen were prepped and draped in the usual manner for hysteroscopy/D&C. A pre-surgical safety time-out was then taken in accordance with [facility] Main OR protocols. A bivalve speculum was inserted in the vagina and the cervix itself visualized. The anterior lip of the cervix was then grasped with a single-tooth tenaculum and the endocervical canal explored with Hegar dilators. The cervix did not require dilation however and hysteroscope was easily placed through the endocervical canal into the endometrial cavity. Using saline as a distention medium, the cavity was visualized with a localized lesion noted on the right side of the lower uterine segment endometrium. The distention medium was replaced with sorbitol and using a resectoscope with an electrified loop, a sample of the exophytic lesion was taken and submitted as a separate specimen. Endocervical curettage was then accomplished with that to sent as a separate pathologic specimen. Sharp curettage of the endometrium produced abundant amounts of tissue and that too was submitted as a separate pathologic specimen. Once the curettage was completed, the tenaculum was removed from the anterior lip of the cervix and the speculum removed from the vagina. The patient was then awakened and transferred to the PACU for a period of observation and recovery after having tolerated the procedure well. Complications: none Post-operative Condition: stable Disposition: PACU Plan for aftercare: Routine postoperative care. Patient be contacted with pathology results when available
== END 2023-02-04 13:26 | disposition home or self-care (01) ==
PROVIDERS: Surgery; PCP Nurse Practitioner; Referring Provider Obstetrics & Gynecology; Visit Provider Obstetrics & Gynecology
PROC: 0UDB8ZZ Extraction of Endometrium, Via Natural or Artificial Opening Endoscopic (ICD-10-PCS; CPT 58558; principal; 2023-02-04 11:00)
PROC: 0DJD8ZZ Inspection of Lower Intestinal Tract, Via Natural or Artificial Opening Endoscopic (ICD-10-PCS; CPT 45378; 2023-02-04 11:00)
DX: N95.0 Postmenopausal bleeding (principal); Z12.11 Encounter for screening for malignant neoplasm of colon; R93.89 Abnormal findings on diagnostic imaging of other specified body structures; K64.8 Other hemorrhoids; K63.5 Polyp of colon; N84.0 Polyp of corpus uteri
CPT/HCPCS: 58558; 45380; J1885; J2405; J2704; J3010

== ENCOUNTER 2023-03-17 11:51 | Day surgery (SDC) | payer OTHER, SELFPAY ==
[2023-03-10 08:14] VITALS: BMI 31.7
[2023-03-17] VITALS (12 sets, daily range): BP systolic 124–158; BP diastolic 72–94; PULSE 74–93; RESP 12–95; TEMP 36–36.8; O2SAT 2–99; BMI 31.7
--- NOTE | 2023-03-17 | PATH_ITS ---
[facility] Accession Number: [id number] No. of containers..01 Tissue . 01 Material submitted: . uterus - UTERUS, CERVIX . 01 Diagnosis: Uterus, Cervix, Hysterectomy (154 grams): Cervix with no significant histomorphologic abnormality. Endocervix with no significant histomorphologic abnormality. Weakly proliferative and disordered proliferative endometrium; negative for significant atypia. Myometrium with a benign subserosal adenomyoma (11 mm). Uterine serosa with no significant atypia. [facility] 03/24/2023 1412 Local . 01 Electronically signed: . Nicole Lott MD, Pathologist NPI- [id number] . 01 Gross description: . The specimen is received in formalin labeled with the patient's name, , and uterus and cervix, and consists of an intact uterus (154 g, 10.1 cm SI, 5.4 cm ML, 4.6 cm AP) with attached cervix (3.9 x 3.7 cm) with no additional adnexa. The ectocervix is pink-pascual and glistening with a suture extending through the cervix from the approximate 10 o'clock to 6 o'clock position with no designation per the requisition. The anterior paracervical margin is inked blue while the posterior paracervical margin is inked black. The serosa is pascual and smooth with no evidence of hemorrhage or adhesion identified. The endocervical canal has pascual herringbone mucosa and measures 3.1 cm in length. The endometrial cavity measures 3.2 cm from cornu to cornu and 4.9 cm in length with red, velvety endometrium that averages 0.1 cm thick. The myometrium is pink-pascual, trabecular and measures 2.4 cm in maximum thickness with a single white, whorled, subserosal nodule measuring 1.1 cm in greatest dimension with no necrosis or hemorrhage identified. C++ Professor sections are submitted as follows: A1: Anterior cervix. A2: Posterior cervix. A3: Anterior full-thickness section. A4: Posterior full-thickness section. A5: Serosa. A6: C++ Professor nodule. ([id number]) /FRR 03/19/2023 1313 Local . 01 Pathologist provided ICD-10: N93.9, R93.89, N80.03 . 01 CPT . 610395 Specimen Comment: A courtesy copy of this report has been sent to [phone] Performed at: 01 [facility] Cytology [address] [address], [place], [place] [id number] MD Raghu Hickman MD Phone: [phone]
[2023-03-17] MEDS: LACTATED RINGERS 1,000 ML 42 ML IV ×3 (12:26→17:33)
--- NOTE | 2023-03-17 14:14 | SUR.OPER ---
Lithotomy on padded OR bed. Azle Pad Positioner under torso. Head on pillow, arms padded and tucked at sides. Legs secured in padded yellow fins stirrups.
[2023-03-17] MEDS: CEFAZOLIN 2 GM/100 ML PREMIX 100 ML IV (15:00)
[2023-03-17] MEDS: BUPIVACAINE 0.5% (PF) 30 ML, EPINEPHrine 0.15 MG INJ (15:56)
[2023-03-17] MEDS: ROPIVACAINE 0.2% PF 2 MG/ML 20ML AMP 20 ML INJ (15:57)
--- NOTE | 2023-03-17 17:00 | PM.GYNOP.1 ---
Operative Date/Time/Diagnoses Date of procedure: 03/17/23 Time of procedure: 15:00 Pre-op diagnosis: Menometrorrhagia Post-op diagnosis: same Procedure & Clinicians Procedure: Procedures Operation Date: 03/17/23 13:30 Actual Procedure Side Surgeon p Total Laparoscopic Hysterectomy Troy Miller MD Indications: Kate returned for her 2 week postop visit following hysteroscopy with resection of endometrial mass.? Unfortunately her bleeding has not improved and she continues to bleed daily with the bleeding only lightening with use of tranexamic acid.? As result she very much wants to move forward with hysterectomy as soon as possible.? Pathology from her hysteroscopy shows only benign endocervical tissue and endometrial polyp fragments without atypia, hyperplasia, or neoplasia.? After considering all options, because of the patient's continued bleeding despite hysteroscopy and removal of endometrial abnormalities, she has decided to proceed with total laparoscopic hysterectomy.? She presents today for her scheduled surgery. Surgeon: Troy Miller Document Management Technician: Rickey Ashley Anesthesia Type: General Operative Notes Findings: Both tubes and ovaries are absent from prior salpingo-oophorectomy. The remainder the pelvis is essentially normal with the exception of some scarring in the anterior cul-de-sac and slight enlargement and irregular contour of the uterus itself. Remainder of the abdomen upper abdomen are normal laparoscopic visualization Closure Type: primary Specimen(s): uterus Applied: catheter Estimated blood loss (mL): 125 Blood products transfused: none Procedure in detail: With the patient in modified dorsal lithotomy position preparations were made by prepping and draping the patient in usual manner for vaginal surgery and insertion of Bacon catheter. A pre-surgical time-out was then taken in accordance with [facility] policy. A bivalve speculum was then placed in the vagina and the cervix visualized. The anterior lip of the cervix was then grasped with a single-tooth tenaculum. The uterus was sounded to 9 cm, the endocervical canal dilated slightly, and a [employer] uterine manipulator with a large colpotomy cup was placed. The umbilicus was then infiltrated with 0.5% Marcaine with epinephrine. A 1 cm umbilical incision was made transversely and a Veress needle was used to insufflate the abdominal cavity with carbon dioxide. Once the abdomen was appropriately insufflated, a 5 mm trocar and sleeve were then placed through the umbilical incision. The scope was placed through the trocar and the initial assessment of the intra-abdominal contents carried out. A 2nd and 3rd 5 mm port was then placed 1st in the right mid quadrant from then the left mid quadrant by infiltration of the skin and subcutaneous tissues, a 1 cm transverse incision and insertion of the 5 mm bladeless port. Using a 3 puncture technique, the abdomen and pelvis were inspected with the findings as noted previously. Uterus was mobilized with the VCare manipulator and attention turned to the left side of the uterus and dissection was then carried down using the PowerSeal device so as to divide the round ligament with blunt and sharp dissection of the broad down to the level of the uterine artery. The uterine artery was then skeletonized after development of a bladder flap, coagulated, and divided. Once hemostasis was assured on the left side attention was turned to the right and the round ligament, and broad ligament were dissected in a fashion exactly the same as it had been on the left. The right uterine artery was then visualized after skeletonization and coagulated and divided. The uterus was seen to roberto carlos after coagulation of both your arteries and the cup was identified through the vaginal muscularis at its insertion with the body of the cervix. Circumferential excision of the vaginal cup was accomplished without difficulty using monopolar current and the uterus mobilized. The uterus was then removed through the vagina and the vaginal cuff closed [id number] with a series of 0 Vicryl [id number] stitches. Hemostasis was excellent, the abdomen was re-insufflated, and the pelvis inspected laparoscopically. The pelvis was inspected for any abnormality or bleeding, and the ureters were each seen to be peristalsing freely. With complete hemostasis assured, the pneumoperitoneum was vented and the ports removed. All of the 5 mm ports were then closed with 4-0 Monocryl on the skin using inverted interrupted sutures. Skin glue was placed and after the glue was dried, an appropriate dressing was applied. The case was then terminated, the patient awakened, and then transferred to PACU after having tolerated the procedure well. Complications: none Post-operative Condition: stable Disposition: PACU Plan for aftercare: Routine postoperative care with follow-up planned for 2 weeks postop.
[2023-03-17] MEDS: ONDANSETRON 4 MG/2 ML INJ IV (17:01)
[2023-03-17] MEDS: HYDROMORPHONE 2 MG INJ IV ×2 (17:02→17:43)
[2023-03-17] MEDS: OXYCODONE/ACETAMINOPHEN 5/325 TABLET 1 TAB PO (17:25)
[2023-03-17] MEDS: ACETAMINOPHEN 325 MG TABLET 650 MG PO ×2 (18:52→23:29)
[2023-03-17] MEDS: LACTATED RINGERS 1,000 ML 100 ML IV (18:52)
[2023-03-17] MEDS: KETOROLAC 30 MG/ML VIAL IV ×2 (18:52→23:30)
[2023-03-17 19:04] LABS: Add Manual Diff / Slide Review NO; Basophils Absolute Auto 0 /uL (0-100); Basophils Percent Auto 0.3 % (0-2); Eosinophils Absolute Auto 0 /uL (0-450); Eosinophils Percent Auto 0.1 % (2-4); Hematocrit 26.5 % (36-46); Hemoglobin 8.5 g/dL (12.0-16.0); Lymphocytes Absolute Auto 1400 /uL (1100-4500); Lymphocytes Percent Auto 11.4 % (25-40); Mean Corpuscular HGB Conc 31.9 % (30-36); Mean Corpuscular Volume 75.2 fL (80-100); Monocytes Absolute Auto 200 /uL (0-900); Monocytes Percent Auto 1.6 % (3-14); Neutrophils Absolute Auto 10600 /uL (1500-7000); Neutrophils Percent Auto 86.6 % (50-75); Platelet Count 358 X10^3/uL (150-400); Red Blood Cell Count 3.53 X10^6/uL (4.0-5.2); Red Cell Distribution Width 14.6 % (11.6-14.8); White Blood Cell Count 12.3 X10^3/uL (4.5-11.0)
[2023-03-17] MEDS: OXYCODONE IR 5 MG TABLET PO (19:42)
[2023-03-17] MEDS: DOCUSATE 100 MG CAPSULE 200 MG PO (20:55)
--- NOTE | 2023-03-17 22:28 | PC.NURSE ---
Dr. Miller called & updated with patient status. No bleeding noted earlier with checked @ 1950. Reported glucose checked @ 2100, results was 270. Patient reported just ate some cheese sticks & pretzels. No new order received, will continue plan of care & monitor.
[2023-03-18] MEDS: ACETAMINOPHEN 325 MG TABLET 650 MG PO (04:50)
[2023-03-18] MEDS: OXYCODONE IR 5 MG TABLET PO (04:50)
[2023-03-18 05:10] VITALS: BP 133/63; PULSE 84; RESP 16; TEMP 36.4; O2SAT 98
[2023-03-18] MEDS: LACTATED RINGERS 1,000 ML 100 ML IV (05:29)
[2023-03-18] MEDS: KETOROLAC 30 MG/ML VIAL IV (06:07)
--- NOTE | 2023-03-18 06:37 | PC.NURSE ---
0558 Bacon catheter discontinued.
[2023-03-18 07:30] VITALS: BP 116/77; PULSE 85; RESP 18; TEMP 36.8; O2SAT 98
[2023-03-18] MEDS: ONDANSETRON 4 MG/2 ML INJ 8 MG IV (08:31)
--- NOTE | 2023-03-18 09:14 | P.DS_ITS ---
History of Present Illness History of Present Illness Date Patient Seen: 03/18/23 Time Patient Seen: 09:14 Chief complaint: Abnormal uterine bleeding Narrative: Kate returned for her 2 week postop visit following hysteroscopy with resection of endometrial mass.? Unfortunately her bleeding has not improved and she continues to bleed daily with the bleeding only lightening with use of tranexamic acid.? As result she very much wants to move forward with hystere ctomy as soon as possible.? Pathology from her hysteroscopy shows only benign endocervical tissue and endometrial polyp fragments without atypia, hyperplasia, or neoplasia.? After considering all options, because of the patient's continued bleeding despite hysteroscopy and removal of endometrial abnormalities, she has decided to proceed with total laparoscopic hysterectomy.? She presents today for her scheduled surgery. Discharge Providers Provider Date of admission: 03/17/2023 Discharge Date: 03/18/23 Primary care physician: TAMERA Morales Discharge provider: Troy Miller MD Summary Hospital Course Discharge Diagnosis: Intractable menometrorrhagia Status post total laparoscopic hysterectomy Hospital Course: Rachel was admitted on the afternoon of 03/17/2023 and underwent an uneventful total laparoscopic hysterectomy. Details of the procedure itself were well summarized on my operative note of that date. Following surgery the patient has had prompt return of bowel and bladder function, she is ambulating independently, tolerating regular diet, and her pain is well controlled with oral pain medications. She will be discharged at this time to home in an afebrile normotensive condition after being counseled regarding precautionary symptoms, limitations of activity, medications, and plans follow-up which will be in 2 weeks. Medications at the time of discharge will include resumption of all pre admission medications except for medroxyprogesterone acetate which we she will no longer take. In addition she was prescribed oxycodone 5 mg every 4- 6 hours as needed for pain, dispensed 20 with no refills, Cipro 500 mg p.o. b.i.d. x5 days for UTI prophylaxis, and Diflucan 150 mg p.o. now and repeat in 3 days as needed yeast infections. Status at Discharge Cognitive/behavioral status at discharge: oriented Functional status at discharge: independent ambulation Overall status at discharge: patient is progressing back to baseline Time Spent with Patient Time spent: Less than 30 minutes Exam Vital Signs (past 8 hours): - 03/18/23 05:10 03/18/23 07:30 Temperature 97.6 F 98.2 F Pulse Rate 84 85 Respiratory Rate 16 18 Blood Pressure 133/63 116/77 Pulse Oximetry 98 98 Oxygen Flow Rate 0 Oxygen Delivery Method Room Air Oxygen Flow Rate 0 Const General: cooperative and comfortable Nutritional Appearance: average body habitus Orientation: alert and oriented x3 HENMT Head: normal to inspection, atraumatic and abrasion Ears: hearing grossly normal bilaterally Face and sinus: face symmetric Eyes General: appearance normal, both eyes and all related structures Conjunctivae: conjunctivae normal Sclera: sclerae normal EOM: EOM intact bilaterally Neck Neck: normal visual inspection Resp Effort & Inspection: normal respiratory effort and able to speak in complete sentences Auscultation: clear to auscultation bilaterally Cardio Rate: regular rate Rhythm: regular rhythm Heart Sounds: S1 normal, S2 normal and no murmurs GI Inspection: normal to inspection and incision (Surgical dressings clean and dry) Palpation: soft, no hepatosplenomegaly and tender (Mild, diffuse postsurgical tenderness) External Female Exam: other (No significant bleeding noted) Extrem General: no calf tenderness Psych Appearance: grossly normal Mental Status: mental status grossly normal Speech and Movement: speech and movement normal Mood: congruent mood Affect: normal affect Attitude: cooperative Thought Process: normal Thought Content: normal Judgment: judgment good Objective Labs 03/17/23 18:55 Labs: Laboratory Results - last 24 hr 03/17/23 18:55 WBC 12.3 H RBC 3.53 L Hgb 8.5 L Hct 26.5 L MCV 75.2 L MCH 24.0 L MCHC 31.9 RDW 14.6 Plt Count 358 Neut % (Auto) 86.6 H Lymph % (Auto) 11.4 L Cherry % (Auto) 1.6 L Eos % (Auto) 0.1 L Baso % (Auto) 0.3 Neut # (Auto) 96277 H Lymph # (Auto) 1400 Cherry # (Auto) 200 Eos # (Auto) 0 Baso # (Auto) 0 PFSH Medical History (Updated 03/17/23 @ 14:25 by Troy Miller MD) Abnormal liver function tests (07/05/11) ADHD (attention deficit hyperactivity disorder) (2012) Adult situational stress disorder (07/02/16) Allergic rhinitis (12/25/15) Benign essential hypertension BMI 34.0-34.9,adult Chicken pox (1978) Cyst of finger Depression with anxiety Diabetes mellitus type 2, uncomplicated Dysthymia (12/25/15) Elevated blood pressure reading Exercise-induced asthma Hayfever (1999) History of kidney stones (06/30/11) History of migraine Hot flashes due to menopause Hyperlipidemia associated with type 2 diabetes mellitus Hypothyroidism (acquired) (08/05/11) Irregular periods/menstrual cycles (1989) Lactose intolerance (12/25/15) Migraines (1995) MYRICK (nonalcoholic steatohepatitis) MYRICK (nonalcoholic steatohepatitis) Obesity, Class II, BMI 35-39.9 Ovarian cyst (1999) Sleep apnea (2011) Surgical History (Updated 03/10/23 @ 08:18 by Rere Caba RN) Anesthesia History of hysteroscopy (02/04/23) Hx of colonoscopy (02/04/23) Status post bilateral salpingo-oophorectomy (BSO) (08/06/16) Status post cholecystectomy (2008) Status post dilation and curettage (1993) Status post tubal ligation (2003) Family History Father Diabetes mellitus Heart disease Hypertension High cholesterol Grandfather Diabetes mellitus Grandmother Diabetes mellitus Mother Age: 73 Hypertension Mental health problem Gallstones Grandmother Diabetes mellitus Sister Age: 54 Diabetes mellitus Hypertension High cholesterol Lymphoma Social History marital status: number of children: 3 household members: spouse and children lives independently: Yes caregiver/support person: No housing: house pets and animals: Yes education level: college occupational status: employed current occupational exposures/hazards: No kristan/baptism: None travel history: recurrent leisure activities: reading and other Smoking Status: Never smoker Tobacco: How many years used: 0 quit status: quit date established second hand exposure: No alcohol intake: never substance use type: does not use Discharge Assessment & Plan Assessment and Plan Assessment: Intractable menometrorrhagia Status post total laparoscopic hysterectomy Plan of Treatment: Routine postoperative care with follow-up planned for 2 weeks postop Discharge Plan Discharge Plan Patient Disposition: Home Provider Discharge Comment: Please review the written instructions you received when you were discharged from the hospital. Your follow-up appointment will be scheduled for 2 weeks after your surgery and I look forward to seeing you then. If however in the meanwhile, you have any issues, concerns, or questions, please contact me either through the office phone at [phone], or via the patient portal. Discharge orders & Medications Discharge Orders: Discharge (Order); Ordered 03/18/23 Ordered By: Troy Miller Prescriptions: New oxycodone 5 mg Tablet 5 mg PO Q4HR PRN (Reason: Pain, Moderate (4-6)) Qty: 20 0RF ciprofloxacin HCl [Cipro] 500 mg tablet 500 mg PO BID 5 Days Qty: 10 0RF fluconazole [Diflucan] 150 mg tablet 150 mg PO Q3D Qty: 2 3RF Rx Instructions: Repeat second dose 72 hrs after first dose Continued estradiol 0.1 mg/24 hr patch semiweekly See Rx Instructions .ROUTE .COMPLEX Qty: 24 3RF Dose Instruction: APPLY 1 PATCH TRANSDERMALLY TWICE A WEEK X HOT FLASHES.(APPLY 1 PATCH X 3 DAYS ALTERNATING WITH 1 PATCH FOR 4 DAYS EACH WEEK). Rx Instructions: APPLY 1 PATCH TRANSDERMALLY TWICE A WEEK X HOT FLASHES.(APPLY 1 PATCH X 3 DAYS ALTERNATING WITH 1 PATCH FOR 4 DAYS EACH WEEK). glipizide 5 mg tablet See Rx Instructions .ROUTE .COMPLEX Qty: 180 3RF Dose Instruction: TAKE 1 TABLET BY MOUTH WITH EVENING MEAL DAILY FOR 7 DAYS, INCREASE TOLERA TE TO TWICE DAILY WITH FOOD. Rx Instructions: TAKE 1 TABLET BY MOUTH WITH EVENING MEAL DAILY FOR 7 DAYS, INCREASE TOLERATE TO TWICE DAILY WITH FOOD. bupropion HCl 150 mg tablet extended release 24 hr 150 mg PO QAM Qty: 90 3RF Rx Instructions: Take 1 tab each am, may increase in 1-2 weeks to 300mg as tolerated albuterol sulfate 90 mcg/actuation HFA aerosol inhaler 2 puff inhalation Q6H PRN (Reason: shortness of breath or wheezing) Qty: 8.5 1RF lisinopril 20 mg tablet 20 mg PO DAILY Qty: 90 3RF Rx Instructions: Leave near toothbrush, take at bedtime daily rosuvastatin 5 mg tablet 5 mg PO DAILY Qty: 90 3RF Rx Instructions: Take 1 tab at bedtime daily omeprazole 20 mg capsule,delayed release(DR/EC) 20 mg PO PRN PRN (Reason: Heartburn) Rx Instructions: Take 1 tab twice per day Discontinued medroxyprogesterone 10 mg tablet See Rx Instructions .ROUTE .COMPLEX Qty: 60 3RF Dose Instruction: TAKE 1 TABLET BY MOUTH TWICE DAILY FOR 10 DAYS Rx Instructions: TAKE 1 TABLET BY MOUTH TWICE DAILY Follow up/Referrals: Bebe Garza ARNP [Primary Care Provider] - Troy Miller MD [Physician] - Diet/Activity/Treatments Diet: Diet as Tolerated Activity: As tolerated Other treatments: Hcna-dts-onwkqdy Tylenol and/or ibuprofen may be for additional pain relief. Ppgd-vct-ntmaoal stool softeners and/MiraLax may used as needed for constipation. Skin/Wound/Dressing Care Report to your healthcare provider any signs of infection, such as:: chills, fever, increased pain, unusual drainage and unusual redness Dressing: Dressings should be removed on morning 03/19/2023 Visit Report/Discharge Packet Instructions: DI for Hysterectomy, DI for Laparoscopy Print Language: Faroese Discharge Data Primary Care Provider: Bebe Garza Attending Provider: Troy Miller Quality VTE Deep Vein Thrombosis/Pulmonary Embolism Present on Admission: No
[2023-03-18] MEDS: DOCUSATE 100 MG CAPSULE 200 MG PO (09:29)
--- NOTE | 2023-03-18 09:57 | PC.NURSE ---
Day shift: Pt states I take all my medications at night and I'll take them all tonight when I'm at home.
--- NOTE | 2023-03-18 10:53 | PC.NURSE ---
Day shift: Paperwork signed and all questions answered. Pt has all personal belongings. scripts sent electronic to Pt's pharmacy. Pt has voided and states that her nausea is better. Left unit via WC at approx 1045. Taken by this specifications writer. Pt's Sister is driving her home.
--- NOTE | 2023-03-18 12:13 | CM.DANOTE ---
Patient is a 47 yo female who was admitted on 03/18/23 today for Total Lap Hysterectomy. Pt has REED for insurance and her PCP is Bebe Garza. EMR was reviewed. Per OBGYN, pt had D&C a couple weeks ago but continued with bleeding so decision was total hysterectomy and pt seemed to tolerate well and stable for d/c home today. 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 Pt having some nausea and has not voided independently yet. Pt and sister confirm that sister will provide transport home today and can assist as needed when spouse is working. Pt does not anticipate any needs and agreeable with d/c to home. Per RN, pt given medication for nausea and seems improved and was able to void. No noted concerns with d/c to home today. Plan: Patient to d/c home today via sister POV and assist and outpt f/u. No further SW needs at this time. DAVID Almanza Discharge Planning/Care Management CM Discharge Assessment Start: 03/18/23 12:12 Freq: Status: Active Protocol: Document 03/18/23 12:12 BF (Rec: 03/18/23 12:13 BF [id number]) Discharge Planning Assessment Assigned Golf Caddy DAVID Brink DPOA/Assigned Designee Name spouse informally Advance Directives? No Advance Directives on File No History Provided By Patient,Family Member,Medical Record Has Patient been admitted in last 30 No days? Prior Living Arrangements House Household Members spouse,children Type of transporation used prior to Drives own vehicle admit Independent with ADL's Yes Is patient alert and oriented? Yes Caregiver for Another Yes: kids at home Discharge Plan Home Transportation Arrangement sister bedside and will transport Referrals Initiated None needed Whiteboard Updated in Patient Room with Yes name and ext. # of Golf Caddy Review Status In Process Please Provide Date Initial DC 03/18/23 Assessment Was Performed Next Review Type Continued Stay Review Pre-Anesthesia Assessment Start: 03/10/23 08:14 Freq: Status: Discharge Protocol: Document 03/10/23 08:14 CAB (Rec: 03/10/23 08:39 CAB [id number]) Pre-Anesthesia Assessment Patient Information Reviewed Via Chart Review Primary Care Provider Bebe Garza Seen Specialist in Last 12 Months Yes Specialist Seen Pc Technician Primary Language Maltese Parliamentary Librarian Required No Height 162.56 cm Weight 83.915 kg Body Mass Index (BMI) 31.7 Barriers to Learning None Hx Anesthesia Reactions No Hx Family Anesthesia Reaction No Hx Malignant Hyperthermia No Hx Blood Transfusion Reaction No Anesthesia Review Requested No Bench Technician No alcohol intake never Smoking Status Never smoker Substance Use Type does not use History of Falling (Recent or History of No ) Patient is completely paralyzed or No completely immobile Mental Status Oriented to own ability Is patient on oxygen? No Hx Sleep Apnea Yes Sleep apnea treatment Treatment unknown Currently Taking a Beta Jacobo No Anti-Coagulant Therapy No Cardiac Testing No Hx Pacemaker/ICD No Pacemaker Rep Required? No Cardiac Clearance Received Not Applicable Urinary Catheter Present No Hx Urinary Self Catheterization No Diabetes Yes HgbA1C 9.3 Date 12/09/22 Patient No Lactating No Presence of External or Internal Medical No Devices Received a COVID vaccine? Yes Marital Status Lives With spouse,children Patient Discharge Plan Description Return Home Advance Directives? No Advance Directives on File No Power of Pilot Plant Supervisor No
== END 2023-03-18 10:55 | disposition home or self-care (01) ==
LOC: OR 11:52 → AC 11:54
PROVIDERS: PCP Nurse Practitioner; Referring Provider Obstetrics & Gynecology; Visit Provider Obstetrics & Gynecology
PROC: 0UT94ZZ Resection of Uterus, Percutaneous Endoscopic Approach (ICD-10-PCS; CPT 58570; principal; 2023-03-17 13:30)
DX: N92.1 Excessive and frequent menstruation with irregular cycle (principal); E11.9 Type 2 diabetes mellitus without complications; I10 Essential (primary) hypertension; Z79.84 Long term (current) use of oral hypoglycemic drugs; D26.1 Other benign neoplasm of corpus uteri
CPT/HCPCS: 58570; 36415; 82962; 85025; A9270; J0171; J0690; J1100; J1170; J1885; J2250; J2405; J2704; J2795; J3010

== ENCOUNTER → 2023-04-29 08:41 | Outpatient (CLI) | payer OTHER, SELFPAY ==
[2023-03-17 18:00] VITALS: BMI 31.7
[2023-04-29 10:15] LABS: Alanine Aminotransferase 49 IU/L (<35); Albumin 3.7 g/dL (3.5-5.0); Albumin Globulin Ratio 1.1 (1.0-2.8); Alkaline Phosphatase 132 U/L (38-126); Aspartate Aminotransferase 39 IU/L (14-36); BUN Creatinine Ratio 21.3 (6-22); Bilirubin Total 0.5 mg/dL (0.2-1.3); Blood Urea Nitrogen 10 mg/dL (7-17); Calcium 8.2 mg/dL (8.4-10.2); Carbon Dioxide 25 mmol/L (22-32); Chloride 102 mmol/L (98-107); Cholesterol 206 mg/dL (140-199); Estimated Glomerular Filt Rate > 60 mL/min (>60); Globulin 3.3 g/dL (1.7-4.1); Glucose 216 mg/dL (70-100); HDL Cholesterol 48 mg/dL (40-60); HEMOLYSIS < 15 (0-50); LDL Cholesterol Calculated 135 mg/dL (<100); Potassium 4.3 mmol/L (3.4-5.1); Sodium 135 mmol/L (137-145); Triglycerides 116 mg/dL (35-150)
[2023-04-29 10:30] LABS: Creatinine Urine Random 157.9 mg/dL
[2023-04-29 10:35] LABS: Microalbumin Urine Random 3.8 mg/dL (0-1.6)
[2023-04-30 09:30] LABS: x Labcorp Estim. Avg Glu (eAG) 226 mg/dL (.); x Labcorp Hemoglobin A1c 9.5 % (4.8-5.6)
[2023-05-02 20:46] LABS: HIV 1 & 2 Ab/Ag 4th Gen Combo NEGATIVE (NEGATIVE)
== END ==
PROVIDERS: PCP Nurse Practitioner; Referring Provider Nurse Practitioner; Visit Provider Nurse Practitioner
DX: E11.69 Type 2 diabetes mellitus with other specified complication (principal); E11.9 Type 2 diabetes mellitus without complications; E78.5 Hyperlipidemia, unspecified; K75.81 Nonalcoholic steatohepatitis (NASH); Z11.4 Encounter for screening for human immunodeficiency virus [HIV]
CPT/HCPCS: 36415; 80053; 80061; 82043; 82570; 83036; 87389

== ENCOUNTER → 2023-07-20 09:04 | Outpatient (CLI) | payer OTHER, SELFPAY ==
[2023-05-19 13:43] VITALS: BMI 31.7
--- NOTE | 2023-07-20 09:05 | DI.US.S_ITS ---
ULTRASOUND OF LEFT BREAST: 07/20/2023 CLINICAL: 6 month follow-up of cysts. Comparison is made to exams dated: 01/18/2023 ultrasound, 01/18/2023 mammogram, 12/23/2022 mammogram, 11/18/2015 mammogram, and 11/15/2014 mammogram - [facility]. Color flow and real-time ultrasound of the left breast were performed. Linares scale images of the real-time examination were reviewed. There is a 1 cm x 0.4 cm x 0.8 cm oval cyst in the left breast at 2 o'clock middle depth 5 cm from the nipple. This oval cyst is of mixed echogenicity with internal echoes and posterior acoustic enhancement. This abnormality is not significantly changed and correlates with mammography findings. Color flow imaging demonstrates that there is no vascularity present. IMPRESSION: PROBABLY BENIGN The 1 cm x 0.4 cm x 0.8 cm oval cyst in the left breast likely represents a complicated cyst and is probably benign. A follow-up bilateral mammogram and a left ultrasound in 6 months is recommended to demonstrate stability. Findings and recommendations were conveyed to the patient during today's evaluation. This exam was interpreted at Station ID: [id number]. Electronically Signed By: Gregorio Dawkins M.D. aty/:07/20/2023 09:51:13 letter sent: Followup Recommended Ultrasound BI-RADS: 3 Probably benign
== END ==
PROVIDERS: PCP Nurse Practitioner; Referring Provider Nurse Practitioner; Visit Provider Nurse Practitioner
DX: N60.02 Solitary cyst of left breast (principal)
CPT/HCPCS: 76642

== ENCOUNTER → 2023-09-16 07:28 | Outpatient (CLI) | payer OTHER, SELFPAY ==
[2023-05-19 13:43] VITALS: BMI 31.7
[2023-09-16 08:22] LABS: Hemoglobin A1C% w Est Avg Glu 8.2 % (4.0-6.0)
[2023-09-16 08:33] LABS: Alanine Aminotransferase 50 IU/L (<35); Albumin 3.8 g/dL (3.5-5.0); Albumin Globulin Ratio 1.2 (1.0-2.8); Alkaline Phosphatase 106 U/L (38-126); Aspartate Aminotransferase 41 IU/L (14-36); BUN Creatinine Ratio 21.4 (6-22); Bilirubin Total 0.8 mg/dL (0.2-1.3); Blood Urea Nitrogen 12 mg/dL (7-17); Calcium 9.2 mg/dL (8.4-10.2); Carbon Dioxide 27 mmol/L (22-32); Chloride 100 mmol/L (98-107); Cholesterol 176 mg/dL (140-199); Estimated Glomerular Filt Rate > 60 mL/min (>60); Globulin 3.1 g/dL (1.7-4.1); Glucose 134 mg/dL (70-100); HDL Cholesterol 44 mg/dL (40-60); HEMOLYSIS < 15 (0-50); LDL Cholesterol Calculated 117 mg/dL (<100); Potassium 3.7 mmol/L (3.4-5.1); Sodium 136 mmol/L (137-145); Total Protein 6.9 g/dL (6.3-8.2); Triglycerides 75 mg/dL (35-150)
[2023-09-16 08:48] LABS: Free T3, Triiodothyronine Free 3.91 pg/mL (2.77-5.27); Free T4, Direct Thyroxine 1.36 ng/dL (0.78-2.19)
[2023-09-16 09:02] LABS: Thyroid Stimulating Hormone 2.11 uIU/mL (0.47-4.68)
[2023-09-16 10:34] LABS: Creatinine Urine Random 268.6 mg/dL
[2023-09-16 10:38] LABS: Microalbumi Creatinin Ratio Ur 24.5 ug/mg CR (<30); Microalbumin Urine Random 6.6 mg/dL (0-1.6)
== END ==
PROVIDERS: PCP Nurse Practitioner; Referring Provider Nurse Practitioner; Visit Provider Nurse Practitioner
DX: E11.69 Type 2 diabetes mellitus with other specified complication (principal); E78.5 Hyperlipidemia, unspecified; E11.9 Type 2 diabetes mellitus without complications; I10 Essential (primary) hypertension; K75.81 Nonalcoholic steatohepatitis (NASH); F90.9 Attention-deficit hyperactivity disorder, unspecified type; E03.9 Hypothyroidism, unspecified; F41.8 Other specified anxiety disorders
CPT/HCPCS: 36415; 80053; 80061; 82043; 82570; 83036; 84439; 84443; 84481

== ENCOUNTER 2023-09-25 16:28 | Emergency (ER) | payer OTHER, SELFPAY ==
[2023-05-19 13:43] VITALS: BMI 31.7
[2023-09-25 16:30] VITALS: BP 197/90; PULSE 89; RESP 18; TEMP 36.8; O2SAT 97
--- NOTE | 2023-09-25 16:44 | CM.MNRNOTE ---
provider at bedside for primary eval
--- NOTE | 2023-09-25 17:03 | ED_ITS ---
HPI - Dental/Oral <Jie Hewitt PA-C - Last Filed: 09/25/23 20:04> General Chief complaint: Dental/Oral Stated complaint: post abcess tooth/rt side of face numb/mouth redne Time Seen by Provider: 09/25/23 16:41 Source: patient Mode of arrival: Ambulatory History of Present Illness HPI Narrative: 48-year-old female with history of diabetes type 2, hypertension presents with concern for dental pain Dental pain for about 2 weeks mostly on the upper right molar but also some lower dental pain. Saw her dentist on Tuesday. Based on x-rays they stated she had an infection and have referred her to an oral s urgeon. Started her on amoxicillin. She is been taking this for 4 days but then this afternoon she felt her cheek became more swollen and painful and also had some numbness develop. She is concerned that the antibiotics so far have not seem to resolve things and pain has been improved with medications including Percocet Tylenol and ibuprofen but also not fully resolved. She denies recent fevers chills or any other symptoms and states she is otherwise been in her usual state of health. Related Data Previous Rx's Medication Instructions Recorded albuterol sulfate 90 mcg/actuation 2 puff inhalation Q6H PRN 03/10/22 aerosol inhaler shortness of breath or wheezing #8.5 grams clonidine 0.1 mg/24 hr weekly 1 patch transdermal QWEEK #16 ea 07/12/23 transdermal patch rosuvastatin 20 mg tablet 20 mg PO .weekly #12 tabs 07/12/23 estradiol 0.1 mg/24 hr semiweekly See Rx Instructions .Route 08/23/23 transdermal patch .COMPLEX #24 patches amoxicillin 875 mg-potassium 1 tab PO Q12H dental infection 10 09/25/23 clavulanate 125 mg tablet days #20 tabs Allergies Allergy/AdvReac Type Severity Reaction Status Date / Time bee venom protein (honey bee) Allergy Intermediate Swelling Verified 04/28/23 10:08 Penicillins Allergy Unknown Family Verified 04/28/23 10:08 history of allergic reaction. Never had it. diphenhydramine AdvReac Severe SOB Verified 04/28/23 10:08 metformin AdvReac Severe Abdominal Verified 04/28/23 10:08 Pain Review of Systems <Jie Hewitt PA-C - Last Filed: 09/25/23 20:04> Review of Systems Narrative: See HPI Patient History <Jie Hewitt PA-C - Last Filed: 09/25/23 20:04> Medical History Carpal tunnel syndrome of right wrist Elevated hemoglobin A1c Hot flashes due to menopause Exercise-induced asthma Depression with anxiety Elevated blood pressure reading Hyperlipidemia associated with type 2 diabetes mellitus MYRICK (nonalcoholic steatohepatitis) Cyst of finger BMI 34.0-34.9,adult History of migraine Hypothyroidism (acquired) (08/05/11) History of kidney stones (06/30/11) Benign essential hypertension Obesity, Class II, BMI 35-39.9 MYRICK (nonalcoholic steatohepatitis) Diabetes mellitus type 2, uncomplicated Ovarian cyst (1999) Irregular periods/menstrual cycles (1989) Chicken pox (1978) ADHD (attention deficit hyperactivity disorder) (2012) Migraines (1995) Hayfever (1999) Sleep apnea (2011) Adult situational stress disorder (07/02/16) Allergic rhinitis (12/25/15) Lactose intolerance (12/25/15) Dysthymia (12/25/15) Abnormal liver function tests (07/05/11) Surgical History Hx of colonoscopy (02/04/23) History of hysteroscopy (02/04/23) Anesthesia Status post bilateral salpingo-oophorectomy (BSO) (08/06/16) Status post cholecystectomy (2008) Status post dilation and curettage (1993) Status post tubal ligation (2003) Family History Father Diabetes mellitus Heart disease Hypertension High cholesterol Grandfather Diabetes mellitus Grandmother Diabetes mellitus Mother Age: 74 Hypertension Mental health problem Gallstones Grandmother Diabetes mellitus Sister Age: 55 Diabetes mellitus Hypertension High cholesterol Lymphoma Social History marital status: number of children: 3 household members: spouse and children lives independently: Yes caregiver/support person: No housing: house pets and animals: Yes education level: college occupational status: employed current occupational exposures/hazards: No kristan/islam: None travel history: recurrent leisure activities: reading and other Smoking Status: Never smoker Tobacco: How many years used: 0 quit status: quit date established second hand exposure: No alcohol intake: never substance use type: does not use Smoking Status: Never smoker alcohol intake frequency: holidays/special occasions only Substance Use Type: does not use Exam <Jie Hewitt PA-C - Last Filed: 09/25/23 20:04> Narrative Exam Narrative: GENERAL: [48] year old patient appears stated age. Well-developed patient, in mild distress, nontoxic appearing. HEAD: Atraumatic. Normocephalic. EYES: Pupils equal round and reactive. Extraocular motions intact. No scleral icterus. No injection or drainage. ENT: The right buccal region is slightly swollen appearing as compared to the left without any fluctuance or erythema noted. Patient has multiple fillings present in lower molars and upper molars. There is tenderness with palpation of the right upper molar 3rd from the back. She has an area of erythema at the posterior oropharynx just behind the upper molars. The right buccal region is slightly swollen and patient has evidence of mild superficial trauma 2nd to chewing. There is no evidence of abscess of the gums. Sinuses are nontender. Nose without bleeding, purulent drainage. Throat without erythema, tonsillar hypertrophy or exudate. Airway patent. NECK: Trachea midline. Non tender CARDIOVASCULAR: Regular rate and rhythm without murmurs, gallops, or rubs. RESPIRATORY: Clear to auscultation. Breath sounds equal bilaterally. No wheezes, rales, or rhonchi. EXTREMITIES: No edema or joint tenderness. NEURO: AOx3. SKIN: No rash or erythema of visible areas Initial Vital Signs Initial Vital Signs: Vital Signs Temperature 98.3 F 09/25/23 16:30 Pulse Rate 89 09/25/23 16:30 Respiratory Rate 18 09/25/23 16:30 Blood Pressure 197/90 H 09/25/23 16:30 Pulse Oximetry 97 09/25/23 16:30 Oxygen Delivery Method Room Air 09/25/23 16:30 <Beatrice Parra DO - Last Filed: 09/27/23 09:38> Initial Vital Signs Initial Vital Signs: Vital Signs Temperature 98.3 F 09/25/23 16:30 Pulse Rate 89 09/25/23 16:30 Respiratory Rate 18 09/25/23 16:30 Blood Pressure 197/90 H 09/25/23 16:30 Pulse Oximetry 97 09/25/23 16:30 Oxygen Delivery Method Room Air 09/25/23 16:30 Course <Jie Hewitt PA-C - Last Filed: 09/25/23 20:04> Vital Signs Vital signs: Vital Signs - 8 hr 09/25/23 16:30 Temperature 98.3 F Pulse Rate 89 Respiratory Rate 18 Blood Pressure 197/90 H Pulse Oximetry 97 Oxygen Delivery Method Room Air <Beatrice Parra DO - Last Filed: 09/27/23 09:38> Vital Signs Vital signs: Vital Signs - 8 hr 09/25/23 16:30 Temperature 98.3 F Pulse Rate 89 Respiratory Rate 18 Blood Pressure 197/90 H Pulse Oximetry 97 Oxygen Delivery Method Room Air MDM - Dental/Oral <Jie Hewitt PA-C - Last Filed: 09/25/23 20:04> Differential Diagnosis Differential diagnosis: Likely dental caries, toothache, dental abscess and other (dental infection) Lab Data Attestation: I reviewed the patient's lab results. Treatment and disposition Shared decision making:: Shared decision-making was used to determine plan for change in medication, outpatient care and follow-up. [facility] Narrative Medical decision making narrative: Generally well-appearing 48-year-old female presents with concern for right cheek swelling and mild numbness sensation beginning this afternoon in the setting of a dental infection and 4 days of amoxicillin. Prescribed by her dentist. Patient already has plans for appointment with Oral surgery given dentists concern for infected tooth on her right upper. Patient is nontoxic appearing with unremarkable vitals and exam does not suggest a severe infection or deep space infection, however given these new symptoms despite taking amoxicillin and report of poor pain control over the last few days despite amoxicillin Tylenol ibuprofen and Percocet, do change her antibiotic and advised her to stop taking amoxicillin and begin taking Augmentin. Patient has penicillin allergy in her chart however she denies any known allergy to this and states it is only in her chart because she has siblings that have penicillin allergies. She is agreeable with the plan and understands she will follow up closely with her dentist, see the oral surgeon, if she develops fevers or worsening pain or swelling she will seek re-evaluation immediately. Return precautions provided, follow-up plan discussed, all questions answered. Discharge Plan Departure Patient Disposition: Home Clinical Impression: Dental infection, Pain, dental Instructions: Tooth Abscess Activity Restrictions/Additional Instructions: *You have been diagnosed with [dental infection/dental pain] *What to do: *Please continue to take your regular medications as directed. [ 1] New medication prescriptions sent to your pharmacy: [Augmentin] [ ] New medication written as a paper prescription [ ] No new medications given *Please follow up with your primary care provider in 2-3 days, call for an appointment. Let them know you were seen in the Emergency Department and that we ask that you be seen in follow up. We will electronically transmit a record of today's note if your PCP is in our system. Please stop taking the amoxicillin medication you started 4 days ago and instead begin taking the Augmentin. I am concerned that your infection your dentist noted last week is not resolving with the amoxicillin and he need a stronger antibiotic. If you do develop fevers or feel your symptoms are worsening please make sure you get re-evaluated. Otherwise continue the Augmentin as prescribed even if you are feeling better and continue with your plan to see a oral surgeon. Please follow-up with your regular dentist as well. You may continue with Tylenol and ibuprofen or Motrin as needed for pain and inflammation. *If you do not have a primary care provider please contact the [facility] Resource line at [phone]. They will ask some questions about your medical history and help get you set up with a doctor in the community. *Return to Emergency Department if you should have any new, worsening or concerning symptoms, such as [fever greater than 101 F, shaking chills, worsening pain, persistent vomiting or other bothersome symptoms] Prescriptions: New amoxicillin-pot clavulanate 875-125 mg tablet 1 tab PO Q12H 10 Days Qty: 20 0RF No Action rosuvastatin 20 mg tablet 20 mg PO .weekly Qty: 12 3RF Rx Instructions: Take 1 tab weekly for elevated cholesterol clonidine 0.1 mg/24 hr patch weekly 1 patch transdermal QWEEK Qty: 16 3RF Rx Instructions: Apply topically rotating sites weekly for hypertension estradiol 0.1 mg/24 hr patch semiweekly See Rx Instructions .ROUTE .COMPLEX Qty: 24 3RF Dose Instruction: APPLY 1 PATCH TRANSDERMALLY TWICE A WEEK X HOT FLASHES.(APPLY 1 PATCH X 3 DAYS ALTERNATING WITH 1 PATCH FOR 4 DAYS EACH WEEK). Rx Instructions: APPLY 1 PATCH TRANSDERMALLY TWICE A WEEK X HOT FLASHES.(APPLY 1 PATCH X 3 DAYS ALTERNATING WITH 1 PATCH FOR 4 DAYS EACH WEEK). albuterol sulfate 90 mcg/actuation HFA aerosol inhaler 2 puff inhalation Q6H PRN (Reason: shortness of breath or wheezing) Qty: 8.5 1RF Referrals: Bebe Garza ARNP [Primary Care Provider] - Stand Alone Forms: Patient Portal/API, Work Release Note ED Sign-out <Beatrice Parra DO - Last Filed: 09/27/23 09:38> Cosign ED Attending Cosignature Attestation: I was immediately available in the department for consultation.
== END 2023-09-25 17:38 | disposition home or self-care (01) ==
PROVIDERS: Emergency Provider Student in an Organized Health Care Education/Training Program; PCP Nurse Practitioner
DX: K04.7 Periapical abscess without sinus (principal)
CPT/HCPCS: 99281; 99283

== ENCOUNTER → 2023-11-03 10:17 | Outpatient (CLI) | payer OTHER, SELFPAY ==
[2023-05-19 13:43] VITALS: BMI 31.7
[2023-11-03 11:29] LABS: Alanine Aminotransferase 69 IU/L (<35); Albumin 3.8 g/dL (3.5-5.0); Albumin Globulin Ratio 1.1 (1.0-2.8); Alkaline Phosphatase 119 U/L (38-126); Aspartate Aminotransferase 74 IU/L (14-36); BUN Creatinine Ratio 21.4 (6-22); Bilirubin Total 0.7 mg/dL (0.2-1.3); Blood Urea Nitrogen 9 mg/dL (7-17); Calcium 8.8 mg/dL (8.4-10.2); Carbon Dioxide 23 mmol/L (22-32); Chloride 105 mmol/L (98-107); Creatine Kinase 41 U/L (30-135); Estimated Glomerular Filt Rate > 60 mL/min (>60); Globulin 3.6 g/dL (1.7-4.1); Glucose 175 mg/dL (70-100); HEMOLYSIS < 15 (0-50); Potassium 3.9 mmol/L (3.4-5.1); Sodium 136 mmol/L (137-145); Total Protein 7.4 g/dL (6.3-8.2)
[2023-11-03 11:39] LABS: Troponin I < 0.012 ng/mL (0.01-0.034)
[2023-11-03 11:45] LABS: Free T3, Triiodothyronine Free 3.26 pg/mL (2.77-5.27); Free T4, Direct Thyroxine 1.23 ng/dL (0.78-2.19)
[2023-11-03 11:58] LABS: Thyroid Stimulating Hormone 1.88 uIU/mL (0.47-4.68)
[2023-11-03 12:39] LABS: Add Manual Diff / Slide Review NO; Basophils Absolute Auto 0 /uL (0-100); Basophils Percent Auto 0.3 % (0-2); Eosinophils Absolute Auto 100 /uL (0-450); Eosinophils Percent Auto 2.1 % (2-4); Hematocrit 36.8 % (36-46); Lymphocytes Absolute Auto 3100 /uL (1100-4500); Lymphocytes Percent Auto 45.7 % (25-40); Mean Corpuscular HGB Conc 32.6 % (30-36); Mean Corpuscular Hemoglobin 25.7 PG (26-34); Mean Corpuscular Volume 78.6 fL (80-100); Monocytes Absolute Auto 400 /uL (0-900); Monocytes Percent Auto 5.9 % (3-14); Neutrophils Absolute Auto 3100 /uL (1500-7000); Platelet Count 306 X10^3/uL (150-400); Red Blood Cell Count 4.69 X10^6/uL (4.0-5.2); Red Cell Distribution Width 14.3 % (11.6-14.8); White Blood Cell Count 6.8 X10^3/uL (4.5-11.0)
== END ==
LOC: LAB 10:19
PROVIDERS: PCP Nurse Practitioner; Referring Provider Nurse Practitioner; Visit Provider Nurse Practitioner
DX: R07.9 Chest pain, unspecified (principal)
CPT/HCPCS: 36415; 80053; 82550; 84439; 84443; 84481; 84484; 85025; 93005; 93010

== ENCOUNTER → 2024-02-06 08:35 | Outpatient (CLI) | payer OTHER, SELFPAY ==
[2023-05-19 13:43] VITALS: BMI 31.7
--- NOTE | 2024-02-06 08:36 | DI.MG.S_ITS ---
BILATERAL DIGITAL DIAGNOSTIC MAMMOGRAM 3D/2D SHORT-TERM FOLLOW-UP: 02/06/2024 CLINICAL: Short term follow up of the left breast, due for bilateral imaging. Comparison is made to exams dated: 01/18/2023 mammogram, 12/23/2022 mammogram, and 11/18/2015 mammogram - [facility]. Both breasts are heterogeneously dense, which may obscure small masses (category c / 51-75% glandular tissue). There is a bilobed, partially circumscribed, partially obscured, equal density asymmetry in the left breast at 2 o'clock middle depth. This is seen in additional views and demonstrated by prior ultrasound to be a complicated cyst. There also is a new 1.2 cm oval asymmetry in the left breast at 12 o'clock posterior depth. This is seen in additional views. No other significant masses, calcifications, or other findings are seen in either breast. RIght breast mammogram is stable. IMPRESSION: INCOMPLETE: NEEDS ADDITIONAL IMAGING EVALUATION The oval equal density asymmetry in the left breast at 2 o'clock middle depth is stable, consistent with clustered cysts. An ultrasound is recommended to document continued stability. The new 1.2 cm oval asymmetry in the left breast at 12 o'clock posterior depth is indeterminate. An ultrasound is recommended. This was performed immediately following this exam. RIght breast screening mammogram is stable. Based on the Tyrer Cuzick model (a risk assessment model) the patient's lifetime risk is 6.9% and her 10 year risk is 1.6%. According to the ACR, ACS, and NCCN guidelines, an annual breast MRI exam along with mammogram is recommended if the patient's lifetime risk is 20% or greater. This exam was interpreted at Station ID: [id number]. NOTE: For mammograms, a report in lay terms will be sent to the patient. Approximately 15% of breast malignancies will not be visualized mammographically. In the management of a palpable breast mass, a negative mammogram must not discourage biopsy of a clinically suspicious lesion. Electronically Signed By: Carmen mcgill/:02/06/2024 09:43:01 ACR BI-RADS Category 0: Incomplete 3340F
--- NOTE | 2024-02-06 08:36 | DI.US.S_ITS ---
LIMITED ULTRASOUND OF LEFT BREAST AND AXILLA: 02/06/2024 CLINICAL: Patient returns today to evaluate a focal asymmetry in the left breast. Comparison is made to exams dated: 02/06/2024 mammogram, 07/20/2023 ultrasound, 01/18/2023 ultrasound, 01/18/2023 mammogram, 12/23/2022 mammogram, and 11/18/2015 mammogram - [facility]. Color flow and real-time ultrasound of the left breast 2 o'clock, 12 o'clock, and axilla regions were performed. Linares scale images of the real-time examination were reviewed. There is a 1.1 cm x 0.9 cm x 0.6 cm oval mass with an indistinct margin in the left breast at 12 o'clock posterior depth 8 cm from the nipple. This oval mass is hypoechoic. This correlates with mammography findings. Color flow imaging demonstrates that there is no vascularity present. There also is a 1 cm x 0.9 cm x 0.3 cm bilobed complicated cyst in the left breast at 2 o'clock middle depth 5 cm from the nipple. This round complicated cyst is hypoechoic. This correlates with mammography findings. Color flow imaging demonstrates that there is no vascularity present. This has been stable for the past year. Additionally, there is a 0.6 cm x 0.6 cm x 0.3 cm oval cyst in the left breast at 12 o'clock posterior depth 6 cm from the nipple. This oval cyst is hypoechoic. This correlates as an incidental finding. Color flow imaging demonstrates that there is no vascularity present. No significant abnormalities were seen sonographically in the left axilla. IMPRESSION: SUSPICIOUS OF MALIGNANCY The 1.1 cm x 0.9 cm x 0.6 cm oval mass in the left breast at 12 o'clock posterior depth is at a low suspicion for malignancy. An ultrasound guided biopsy is recommended. Findings and recommendations were discussed with the patient by Dr. Yomi Milton in person at time of exam. The 1 cm x 0.9 cm x 0.3 cm bilobed complicated cyst in the left breast at 2 o'clock middle depth is stable and probably benign. The 0.6 cm x 0.6 cm x 0.3 cm oval cyst in the left breast at 12 o'clock posterior depth is incidental, probably a complicated cyst and is probably benign. 6 month follow up ultrasound for the last two findings is recommended. This exam was interpreted at Station ID: [id number]. Electronically Signed By: Carmen mcgill/:02/06/2024 10:16:52 letter sent: Biopsy Required Ultrasound BI-RADS: 4a Low suspicion for malignancy
== END ==
PROVIDERS: PCP Nurse Practitioner; Referring Provider Nurse Practitioner; Visit Provider Nurse Practitioner
DX: R92.8 Other abnormal and inconclusive findings on diagnostic imaging of breast (principal); N63.25 Unspecified lump in the left breast, overlapping quadrants; N60.02 Solitary cyst of left breast; R07.9 Chest pain, unspecified; R92.333 Mammographic heterogeneous density, bilateral breasts
CPT/HCPCS: 76642; 77066; G0279

== ENCOUNTER → 2024-02-16 13:58 | Outpatient (CLI) | payer OTHER, SELFPAY ==
[2023-05-19 13:43] VITALS: BMI 31.7
--- NOTE | 2024-02-16 | DI.US.S_ITS ---
LIMITED ULTRASOUND OF LEFT BREAST: 02/16/2024 CLINICAL: Core bx cancelled secondary to simple cyst. Comparison is made to exams dated: 02/06/2024 ultrasound and 02/06/2024 mammogram - [facility]. Color flow, real-time, and continuous wave Doppler ultrasound of the left breast 12 o'clock region were performed. There is a possible 1 cm oval cyst in the left breast at 12 o'clock posterior depth 8 cm from the nipple. Color flow imaging demonstrates that there is no vascularity present. This is more cystic-appearing on today's imaging. IMPRESSION: PROBABLY BENIGN The possible 1 cm oval complicated cyst in the left breast is probably benign. This is more cystic-appearing on today's imaging. No solid components amenable to sampling visualized. No biopsy was performed. A follow-up ultrasound in 6 months is recommended to demonstrate stability, which can be obtained simultaneously with the other findings from 02/06/2024. This exam was interpreted at Station ID: [id number]. Electronically Signed By: Logan Carvalho M.D. lc/:02/16/2024 14:55:25 letter sent: Followup Recommended Ultrasound BI-RADS: 3 Probably benign
== END ==
LOC: US 13:59
PROVIDERS: PCP Nurse Practitioner; Referring Provider Nurse Practitioner; Visit Provider Nurse Practitioner
DX: N60.02 Solitary cyst of left breast (principal)
CPT/HCPCS: 76642

== ENCOUNTER → 2024-03-21 12:14 | Outpatient (CLI) | payer OTHER, SELFPAY ==
[2023-05-19 13:43] VITALS: BMI 31.7
[2024-03-21 13:29] LABS: Appearance Urine UA CLEAR; Bilirubin Urine UA NEGATIVE (NEGATIVE); Color Urine UA YELLOW; Glucose Urine UA NEGATIVE (Negative); Ketones Urine UA NEGATIVE (NEGATIVE); Leukocyte Esterase Urine UA TRACE (NEGATIVE); Nitrite Urine UA NEGATIVE (Negative); Occult Blood Urine UA NEGATIVE (Negative); Protein Urine UA NEGATIVE (Negative); Urobilinogen Urine UA 0.2 E.U./dL (0.2)
[2024-03-21 13:38] LABS: Urine Volume 10mL (spun)
[2024-03-21 13:39] LABS: Bacteria Urine None Seen; Culture Indicated Urine Specimen Cultured; RBC Urine None Seen (0-5/HPF); Squamous Epithelial Cell Urine 1-5 /HPF (0-5/HPF); WBC Urine 1-5/HPF (0-5/HPF)
[2024-03-21 13:40] LABS: Hemoglobin A1C% w Est Avg Glu 9.2 % (4.0-6.0)
[2024-03-21 14:07] LABS: Albumin 4.3 g/dL (3.5-5.0); Albumin Globulin Ratio 1.3 (1.0-2.8); Blood Urea Nitrogen 10 mg/dL (7-17); Calcium 8.8 mg/dL (8.4-10.2); Carbon Dioxide 26 mmol/L (22-32); Chloride 105 mmol/L (98-107); Cholesterol 213 mg/dL (140-199); Globulin 3.4 g/dL (1.7-4.1); HDL Cholesterol 59 mg/dL (40-60); HEMOLYSIS < 15 (0-50); LDL Cholesterol Calculated 137 mg/dL (<100); Potassium 3.8 mmol/L (3.4-5.1); Sodium 137 mmol/L (137-145); Total Protein 7.7 g/dL (6.3-8.2); Triglycerides 84 mg/dL (35-150)
[2024-03-21 14:12] LABS: Alanine Aminotransferase 54 IU/L (<35); Alkaline Phosphatase 126 U/L (38-126); Aspartate Aminotransferase 39 IU/L (14-36); BUN Creatinine Ratio 17.9 (6-22); Estimated Glomerular Filt Rate > 60 mL/min (>60); Glucose 143 mg/dL (70-100)
[2024-03-21 14:20] LABS: Free T3, Triiodothyronine Free 3.42 pg/mL (2.77-5.27); Free T4, Direct Thyroxine 1.14 ng/dL (0.78-2.19)
[2024-03-21 14:33] LABS: Thyroid Stimulating Hormone 1.84 uIU/mL (0.47-4.68)
[2024-03-21 16:55] LABS: Creatinine Urine Random 56.82 mg/dL
[2024-03-21 17:02] LABS: Microalbumin Urine Random 1.5 mg/dL (0-1.6)
== END ==
LOC: LAB 12:15
PROVIDERS: PCP Nurse Practitioner; Referring Provider Nurse Practitioner; Visit Provider Nurse Practitioner
DX: R73.09 Other abnormal glucose (principal); F41.8 Other specified anxiety disorders; E11.69 Type 2 diabetes mellitus with other specified complication; E78.5 Hyperlipidemia, unspecified; E11.9 Type 2 diabetes mellitus without complications; I10 Essential (primary) hypertension; R31.9 Hematuria, unspecified; E03.9 Hypothyroidism, unspecified
CPT/HCPCS: 80053; 80061; 81001; 82043; 82570; 83036; 84439; 84443; 84481; 87086

== ENCOUNTER 2024-07-29 22:57 | Emergency (ER) | payer OTHER, SELFPAY ==
[2023-05-19 13:43] VITALS: BMI 31.7
[2024-07-29 22:59] VITALS: BP 215/101; PULSE 81; RESP 16; TEMP 36.5; O2SAT 97; BMI 32.5
--- NOTE | 2024-07-29 23:06 | DI.RAD.S_ITS ---
PROCEDURE: XR CHEST 1V INDICATIONS: chest pain TECHNIQUE: One view of the chest was acquired. COMPARISON: None. FINDINGS: Surgical changes and devices: Possible right upper quadrant surgical clips. Lungs and pleura: Right basilar subsegmental atelectasis.. No pleural effusions or pneumothorax. Mediastinum: Mediastinal contours appear normal. Heart size is normal. Bones and chest wall: No suspicious bony lesions. Overlying soft tissues appear unremarkable. IMPRESSION: Right basilar subsegmental atelectasis. Otherwise, no acute cardiothoracic process. Dictated by: Aniket Mir M.D. on 07/29/2024 at 23:38 Approved by: Aniket Mir M.D. on 07/29/2024 at 23:38
[2024-07-29] MEDS: ASPIRIN 81 MG CHEW TAB 324 MG PO (23:16)
--- NOTE | 2024-07-29 23:19 | EKG_ITS ---
[address] [address] Test Date: 2024-07-29 Pat Name: Kate Narayanan Department: Room: Gender: Female Director Industrial: ABDOULAYE POWELL : 1975 Requested By: Order Number: [id number] Reading MD: Jorje Jackson Measurements Intervals [place] Rate: 81 P: 24 ME: 116 QRS: 22 QRSD: 80 T: 34 QT: 388 QTc: 450 Interpretive Statements Normal sinus rhythm Cannot rule out Anterior infarct , age undetermined Electronically Signed On 08-01-2024 17:43:55 PDT by Jorje Jackson
[2024-07-29 23:21] VITALS: PULSE 81; RESP 22; O2SAT 97
[2024-07-29 23:22] VITALS: BP 213/98; PULSE 80; RESP 15; O2SAT 96
[2024-07-29 23:30] VITALS: PULSE 80; RESP 20; O2SAT 96
[2024-07-29 23:39] LABS: Add Manual Diff / Slide Review NO; Basophils Absolute Auto 100 /uL (0-100); Basophils Percent Auto 0.7 % (0-2); Eosinophils Absolute Auto 200 /uL (0-450); Eosinophils Percent Auto 1.7 % (2-4); Hemoglobin 13.2 g/dL (12.0-16.0); Lymphocytes Absolute Auto 3800 /uL (1100-4500); Lymphocytes Percent Auto 40.3 % (25-40); Mean Corpuscular HGB Conc 32.9 % (30-36); Mean Corpuscular Hemoglobin 26.7 PG (26-34); Mean Corpuscular Volume 81.3 fL (80-100); Monocytes Absolute Auto 400 /uL (0-900); Monocytes Percent Auto 4.5 % (3-14); Neutrophils Absolute Auto 5000 /uL (1500-7000); Neutrophils Percent Auto 52.8 % (50-75); Platelet Count 255 X10^3/uL (150-400); Red Blood Cell Count 4.92 X10^6/uL (4.0-5.2); Red Cell Distribution Width 13.3 % (11.6-14.8); White Blood Cell Count 9.4 X10^3/uL (4.5-11.0)
[2024-07-29 23:43] LABS: Prothrombin Time 11.1 SECONDS (9.4-12.5)
[2024-07-29 23:44] VITALS: BP 185/88; PULSE 80; RESP 18; O2SAT 96
[2024-07-29 23:46] LABS: PTT Partial Thromboplastin Tim 35 SECONDS (25.1-36.5)
--- NOTE | 2024-07-29 23:48 | ED_ITS ---
HPI - General Adult General Chief complaint: Hypertension Stated complaint: high blood pressure t-2 Time Seen by Provider: 07/29/24 23:43 Source: patient Mode of arrival: Ambulatory History of Present Illness HPI narrative: Patient is a 49-year-old female history of diabetes hypertension presenting today with elevated blood pressure and some left upper quadrant pain. She reports that for the last 2 days she is woken up at night with pain in her left shoulder blade as well. She does not really complain of chest pain or shortness breath. No nausea vomiting or diaphoresis. She reports that she has pain all time every day take Tylenol Motrin for it which normally helps it. However tonight she woke up with severe pain took her blood pressure was quite elevated systolic greater than 200 she was when she came to the ED. no known history of coronary artery disease Related Data Previous Rx's Medication Instructions Recorded albuterol sulfate 90 mcg/actuation 2 puff inhalation Q6H PRN 03/10/22 aerosol inhaler shortness of breath or wheezing #8.5 grams estradiol 0.1 mg/24 hr semiweekly See Rx Instructions .Route 08/23/23 transdermal patch .COMPLEX #24 patches baclofen 5 mg tablet 5 mg PO BEDTIME #30 tabs 03/21/24 clonidine 0.2 mg/24 hr weekly 1 patch transdermal QWEEK #12 ea 03/21/24 transdermal patch meloxicam 7.5 mg tablet 7.5 mg PO DAILY #90 tabs 03/21/24 nitrofurantoin macrocrystal 100 mg 100 mg PO BID #10 caps 03/22/24 capsule fluconazole 150 mg tablet 150 mg PO Q3D 2 doses #2 tabs 04/03/24 ondansetron 4 mg disintegrating 4 mg PO .TIDP PRN nausea and 04/03/24 tablet vomiting #10 tabs rosuvastatin 20 mg tablet 20 mg PO .weekly #12 tabs 05/21/24 Allergies Allergy/AdvReac Type Severity Reaction Status Date / Time bee venom protein (honey bee) Allergy Intermediate Swelling Verified 03/22/24 14:41 Penicillins Allergy Unknown Family Verified 03/22/24 14:41 history of allergic reaction. Never had it. diphenhydramine AdvReac Severe SOB Verified 03/22/24 14:41 metformin AdvReac Severe Abdominal Verified 03/22/24 14:41 Pain semaglutide AdvReac Intermediate Flu Verified 03/22/24 14:41 symptoms Patient History Medical History (Updated 07/30/24 @ 02:47 by Alysha Ball DO) Hemoglobin A1C greater than 9%, indicating poor diabetic control Carpal tunnel syndrome of right wrist Elevated hemoglobin A1c Hot flashes due to menopause Exercise-induced asthma Depression with anxiety Elevated blood pressure reading Hyperlipidemia associated with type 2 diabetes mellitus MYRICK (nonalcoholic steatohepatitis) Cyst of finger BMI 34.0-34.9,adult History of migraine Hypothyroidism (acquired) (08/05/11) History of kidney stones (06/30/11) Benign essential hypertension Obesity, Class II, BMI 35-39.9 MYRICK (nonalcoholic steatohepatitis) Diabetes mellitus type 2, uncomplicated Ovarian cyst (1999) Irregular periods/menstrual cycles (1989) Chicken pox (1978) ADHD (attention deficit hyperactivity disorder) (2012) Migraines (1995) Hayfever (1999) Sleep apnea (2011) Adult situational stress disorder (07/02/16) Allergic rhinitis (12/25/15) Lactose intolerance (12/25/15) Dysthymia (12/25/15) Abnormal liver function tests (07/05/11) Surgical History (Updated 03/21/24 @ 11:55 by TAMERA Morales) History of total abdominal hysterectomy Hx of colonoscopy (02/04/23) History of hysteroscopy (02/04/23) Anesthesia Status post bilateral salpingo-oophorectomy (BSO) (08/06/16) Status post cholecystectomy (2008) Status post dilation and curettage (1993) Status post tubal ligation (2003) Family History Father Diabetes mellitus Heart disease Hypertension High cholesterol Grandfather Diabetes mellitus Grandmother Diabetes mellitus Mother Age: 74 Hypertension Mental health problem Gallstones Grandmother Diabetes mellitus Sister Age: 55 Diabetes mellitus Hypertension High cholesterol Lymphoma Social History marital status: number of children: 3 household members: spouse and children lives independently: Yes caregiver/support person: No housing: house pets and animals: Yes education level: college occupational status: employed current occupational exposures/hazards: No kristan/adventist: None travel history: recurrent leisure activities: reading and other Smoking Status: Never smoker Tobacco: How many years used: 0 quit status: quit date established second hand exposure: No alcohol intake: never substance use type: does not use Smoking Status: Never smoker alcohol intake frequency: holidays/special occasions only Substance Use Type: does not use Exam Initial Vital Signs Initial Vital Signs: Vital Signs Temperature 97.7 F 07/29/24 22:59 Pulse Rate 81 07/29/24 22:59 Respiratory Rate 16 07/29/24 22:59 Blood Pressure 215/101 H 07/29/24 22:59 Pulse Oximetry 97 07/29/24 22:59 Oxygen Delivery Method Room Air 07/29/24 22:59 GENERAL: Alert 49-year-old female appears uncomfortable and in no acute distress. HEENT: Head atraumatic,EOMI, pupils reactive, face symmetric, moist mucous membranes CARDIOVASCULAR: Regular rate and rhythm without murmurs, rubs or gallops. RESPIRATORY: Breath sounds equal bilaterally, no wheezes rales or rhonchi. ABDOMEN: Soft, very tender in left lower quadrant actually jumped off bed, no significant tenderness in left upper quadrant negative Michael's sign no right- sided pain : No CVA tenderness EXTREMITIES: Normal range of motion, no clubbing or edema. Neurovascularly intact NEUROLOGICAL: Alert and oriented x4.Normal gait and speech. SKIN: Warm, dry, no laceration, no petechiae, no rashes or lesions. Scores HEART Score Heart Score history: Slightly Suspicious Heart Score EKG: Normal Heart Score Age: 45-64 years old Heart Score risk factors: > 3 risk factors or hx of atherosclerotic disease Heart Score troponin: < or = to normal limit Heart Score Total: 3 Course Orders Ordered: ED Orders 07/29/24 23:06 XR chest 1V Stat EKG-12 Lead Stat 07/29/24 23:20 Complete Blood Count AUTO DIFF Stat Comprehensive Metabolic Panel Stat Lipase Stat Magnesium Stat NT-proBNP (BNP-Adult 18+) Stat PTT Partial Thromboplastin Gonzalo Stat Prothrombin Time INR Stat Troponin & CK Cardiac Panel Stat 07/30/24 00:43 CT abdomen pelvis w con Stat 07/30/24 01:08 Trop I [Troponin I] Stat Discontinued Medications Aspirin (Aspirin 81 Mg Chew Tab) 324 mg PO NOW ONE Stop: 07/29/24 23:07 Last Admin: 07/29/24 23:16 Dose: 324 mg Documented By: MORGAN Ketorolac Tromethamine (Ketorolac 30 Mg/Ml Vial) 15 mg IV NOW ONE Stop: 07/30/24 00:44 Last Admin: 07/30/24 01:03 Dose: 15 mg Documented By: MORGAN Vital Signs Vital signs: Vital Signs - 8 hr 07/29/24 22:59 07/29/24 23:21 07/29/24 23:22 Temperature 97.7 F Pulse Rate 81 81 Respiratory Rate 16 22 Blood Pressure 215/101 H 213/98 H Pulse Oximetry 97 97 Oxygen Delivery Method Room Air 07/29/24 23:22 07/29/24 23:30 07/29/24 23:44 Temperature Pulse Rate 80 80 80 Respiratory Rate 15 20 18 Blood Pressure Pulse Oximetry 96 96 96 Oxygen Delivery Method Room Air Room Air Room Air 07/29/24 23:44 07/30/24 00:00 07/30/24 00:02 Temperature Pulse Rate 76 Respiratory Rate 18 Blood Pressure 185/88 H 177/86 H Pulse Oximetry 94 Oxygen Delivery Method Room Air 07/30/24 00:02 07/30/24 00:30 07/30/24 00:30 Temperature Pulse Rate 75 76 Respiratory Rate 17 17 Blood Pressure 169/81 H Pulse Oximetry 96 94 Oxygen Delivery Method Room Air Room Air 07/30/24 01:03 07/30/24 01:04 07/30/24 01:04 Temperature Pulse Rate 80 80 Respiratory Rate 15 16 Blood Pressure 188/86 H Pulse Oximetry 96 95 Oxygen Delivery Method Room Air Room Air 07/30/24 01:29 07/30/24 01:29 07/30/24 01:30 Temperature Pulse Rate 78 Respiratory Rate 15 Blood Pressure 200/91 H 198/94 H Pulse Oximetry 94 Oxygen Delivery Method 07/30/24 01:30 07/30/24 02:00 07/30/24 02:01 Temperature Pulse Rate 76 74 Respiratory Rate 17 15 Blood Pressure 164/95 H Pulse Oximetry 95 94 Oxygen Delivery Method 07/30/24 02:01 07/30/24 02:30 07/30/24 02:30 Temperature Pulse Rate 78 74 Respiratory Rate 18 15 Blood Pressure 143/66 H Pulse Oximetry 96 95 Oxygen Delivery Method Medical Decision Making Lab Data 07/29/24 23:20 07/29/24 23:20 Labs: Lab Results 07/29/24 07/30/24 Range/Units 23:20 01:08 WBC 9.4 (4.5-11.0) X10^3/uL RBC 4.92 (4.0-5.2) X10^6/uL Hgb 13.2 (12.0-16.0) g/dL Hct 40.0 (36-46) % MCV 81.3 (80-100) fL MCH 26.7 (26-34) PG MCHC 32.9 (30-36) % RDW 13.3 (11.6-14.8) % Plt Count 255 (150-400) X10^3/uL Neut % (Auto) 52.8 (50-75) % Lymph % (Auto) 40.3 H (25-40) % Boundary % (Auto) 4.5 (3-14) % Eos % (Auto) 1.7 L (2-4) % Baso % (Auto) 0.7 (0-2) % Neut # (Auto) 5000 (3746-1566) /uL Lymph # (Auto) 3800 (7202-7428) /uL Boundary # (Auto) 400 (0-900) /uL Eos # (Auto) 200 (0-450) /uL Baso # (Auto) 100 (0-100) /uL PT 11.1 (9.4-12.5) SECONDS INR 1.0 (0.9-1.3) APTT 35 (25.1-36.5) SECONDS Sodium 132 L (137-145) mmol/L Potassium 3.7 (3.4-5.1) mmol/L Chloride 102 (98-107) mmol/L Carbon Dioxide 24 (22-32) mmol/L BUN 11 (7-17) mg/dL Creatinine 0.51 L (0.52-1.04) mg/dL Estimated GFR > 60 (>60) mL/min BUN/Creatinine Ratio 21.6 (6-22) Glucose 292 H (70-100) mg/dL Calcium 9.0 (8.4-10.2) mg/dL Magnesium 1.5 L (1.6-2.3) mg/dL Total Bilirubin 0.5 (0.2-1.3) mg/dL AST 37 H (14-36) IU/L ALT 46 H (<35) IU/L Alkaline Phosphatase 143 H (38-126) U/L Total Creatine Kinase 63 (30-135) U/L Troponin I < 0.012 < 0.012 (0.01-0.034) ng/mL NT-Pro-B Natriuret Pep 84 (<125) pg/mL Total Protein 7.0 (6.3-8.2) g/dL Albumin 3.7 (3.5-5.0) g/dL Globulin 3.3 (1.7-4.1) g/dL Albumin/Globulin Ratio 1.1 (1.0-2.8) Lipase 100 (23-300) U/L Imaging Data Chest x-ray: Radiologist's Impression: PROCEDURE: XR CHEST 1V INDICATIONS: chest pain TECHNIQUE: One view of the chest was acquired. COMPARISON: None. FINDINGS: Surgical changes and devices: Possible right upper quadrant surgical clips. Lungs and pleura: Right basilar subsegmental atelectasis.. No pleural effusions or pneumothorax. Mediastinum: Mediastinal contours appear normal. Heart size is normal. Bones and chest wall: No suspicious bony lesions. Overlying soft tissues appear unremarkable. IMPRESSION: Right basilar subsegmental atelectasis. Otherwise, no acute cardiothoracic process. Dictated by: Aniket Mir M.D. on 07/29/2024 at 23:38 CT scan - abdomen/pelvis: Radiologist's Impression: PROCEDURE: CT ABDOMEN PELVIS W CON INDICATIONS: left lower quad pain TECHNIQUE: After the administration of intravenous contrast, axial sections acquired from the lung bases to the pubic symphysis. Coronal and sagittal reformats were performed. For radiation dose reduction, the following was used: automated exposure control, adjustment of mA and/or kV according to patient size. COMPARISON: None. FINDINGS: Image quality: Diagnostic. Peritoneum: No pneumoperitoneum or ascites. Bones: No acute osseous abnormality. Lower Chest: No acute abnormality. Liver: Hepatomegaly up to 21.3 cm with parenchymal hypoattenuation. Gallbladder: Status postcholecystectomy. Biliary tree: No intrahepatic or extrahepatic biliary ductal dilatation. Pancreas: Within normal limits. Spleen: Normal in size and contour. Kidneys: No hydronephrosis or obstructive urolithiasis. Adrenals: No adrenal nodularity. Bladder: Normal in size and wall thickness. : Status post hysterectomy. Stomach: Normal in size and contour. Bowel: Normal in diameter without any bowel obstruction. Appendix within normal limits (3/53). Scattered colonic diverticulosis. Lymph Nodes: No retroperitoneal, mesenteric, or inguinal lymphadenopathy. Vascular: No abdominal aortic aneurysm. The visualized arterial vasculature is patent. Soft Tissues: No acute abnormality. IMPRESSION: 1. Hepatic steatosis with hepatomegaly. 2. Otherwise, no CT evidence to explain the etiology of the patient's left lower quadrant pain. Dictated by: Aniket Mir M.D. 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 Pertinent findings: Troponin negative x2, BNP 84 CBC shows WBC of 9.4 hemoglobin 13.2 Sodium 132 potassium 5.7 chloride 1 2 carbon dioxide 24 creatinine 0.51 Mag is 1.5 Bilirubin 0.5 AST 37 ALT 46 alk-phos 143 lipase 100 Independently reviewed EKG as above no ischemia Imaging studies independently reviewed: CT abdominal pelvis no cause pain no acute abdominal pathology found Consultations: None Treatments: Toradol Re-evaluations: Patient's blood pressure has come down significantly without any sort of intervention Toradol has made her have restless legs syndrome Discussion: 49-year-old female with multiple risk factors for coronary artery disease including hypertension hyperlipidemia and diabetes presents today with some ongoing left upper quadrant pain. She was concerned because of her blood pressure being elevated. Blood pressure was actually high however blood pressure came down without any sort of intervention. Blood work has been reviewed she has no evidence of end-organ damage. She is tuning with troponins EKGs overall reassuring. Tender on exam lower quadrant. Heart score 3 Discharge Plan Departure Patient Disposition: Home Clinical Impression: Atypical chest pain, Abdominal pain Instructions: DI for Abdominal Pain-Adult, DI for Atypical Chest Pain Activity Restrictions/Additional Instructions: *You have been diagnosed with atypical chest pain and abdominal pain *What to do: At this time no have gone of is causing your pain and discomfort. Good news is that your blood pressure has come down and your blood work is overall reassuring. Please discuss with your primary care provider if you should need further heart testing such as echocardiogram and stress test *Continue to take medications as directed *Follow up with your primary care provider in 2-3 days or call [phone] *Return to ER if you should have increasing abdominal pain chest pain shortness of breath persistent nausea or vomiting or any new, worsening or concerning symptoms Prescriptions: No Action estradiol 0.1 mg/24 hr patch semiweekly See Rx Instructions .ROUTE .COMPLEX Qty: 24 3RF Dose Instruction: APPLY 1 PATCH TRANSDERMALLY TWICE A WEEK X HOT FLASHES.(APPLY 1 PATCH X 3 DAYS ALTERNATING WITH 1 PATCH FOR 4 DAYS EACH WEEK). Rx Instructions: APPLY 1 PATCH TRANSDERMALLY TWICE A WEEK X HOT FLASHES.(APPLY 1 PATCH X 3 DAYS ALTERNATING WITH 1 PATCH FOR 4 DAYS EACH WEEK). nitrofurantoin macrocrystal 100 mg capsule 100 mg PO BID Qty: 10 0RF Rx Instructions: must administer with a meal/food fluconazole 150 mg tablet 150 mg PO Q3D Qty: 2 0RF ondansetron 4 mg tablet,disintegrating 4 mg PO .TIDP PRN (Reason: nausea and vomiting) Qty: 10 0RF rosuvastatin 20 mg tablet 20 mg PO .weekly Qty: 12 3RF Rx Instructions: Take 1 tab weekly for elevated cholesterol albuterol sulfate 90 mcg/actuation HFA aerosol inhaler 2 puff inhalation Q6H PRN (Reason: shortness of breath or wheezing) Qty: 8.5 1RF meloxicam 7.5 mg tablet 7.5 mg PO DAILY Qty: 90 3RF baclofen 5 mg tablet 5 mg PO BEDTIME Qty: 30 3RF clonidine 0.2 mg/24 hr patch weekly 1 patch transdermal QWEEK Qty: 12 3RF Referrals: Bebe Garza ARNP [Primary Care Provider] - Stand Alone Forms: Patient Portal/API
[2024-07-29 23:49] LABS: Alanine Aminotransferase 46 IU/L (<35); Albumin 3.7 g/dL (3.5-5.0); Albumin Globulin Ratio 1.1 (1.0-2.8); Alkaline Phosphatase 143 U/L (38-126); Aspartate Aminotransferase 37 IU/L (14-36); BUN Creatinine Ratio 21.6 (6-22); Bilirubin Total 0.5 mg/dL (0.2-1.3); Blood Urea Nitrogen 11 mg/dL (7-17); Carbon Dioxide 24 mmol/L (22-32); Chloride 102 mmol/L (98-107); Creatine Kinase 63 U/L (30-135); Estimated Glomerular Filt Rate > 60 mL/min (>60); Globulin 3.3 g/dL (1.7-4.1); Glucose 292 mg/dL (70-100); HEMOLYSIS 28 (0-50); Lipase 100 U/L (23-300); Magnesium 1.5 mg/dL (1.6-2.3); Potassium 3.7 mmol/L (3.4-5.1); Sodium 132 mmol/L (137-145)
[2024-07-30] VITALS (10 sets, daily range): BP systolic 143–200; BP diastolic 66–95; PULSE 74–80; RESP 15–18; O2SAT 94–96
[2024-07-30] LABS: NT-proBNP (BNP-Adult 18+) 84 pg/mL (<125); Troponin I < 0.012 ng/mL (0.01-0.034)
--- NOTE | 2024-07-30 00:19 | PC.NURSE ---
Pt resting quielty with eyes closed, resps even and not labored. No distress noted at this time. Pt rouses easily to verbal stimuli. Pt remains connected to cardiac, resp, blood pressure, and pulse ox monitors with alarms on and audible. Call light in reach. at bedside.
--- NOTE | 2024-07-30 00:43 | DI.CT.S_ITS ---
PROCEDURE: CT ABDOMEN PELVIS W CON INDICATIONS: left lower quad pain TECHNIQUE: After the administration of intravenous contrast, axial sections acquired from the lung bases to the pubic symphysis. Coronal and sagittal reformats were performed. For radiation dose reduction, the following was used: automated exposure control, adjustment of mA and/or kV according to patient size. COMPARISON: None. FINDINGS: Image quality: Diagnostic. Peritoneum: No pneumoperitoneum or ascites. Bones: No acute osseous abnormality. Lower Chest: No acute abnormality. Liver: Hepatomegaly up to 21.3 cm with parenchymal hypoattenuation. Gallbladder: Status postcholecystectomy. Biliary tree: No intrahepatic or extrahepatic biliary ductal dilatation. Pancreas: Within normal limits. Spleen: Normal in size and contour. Kidneys: No hydronephrosis or obstructive urolithiasis. Adrenals: No adrenal nodularity. Bladder: Normal in size and wall thickness. : Status post hysterectomy. Stomach: Normal in size and contour. Bowel: Normal in diameter without any bowel obstruction. Appendix within normal limits (3/53). Scattered colonic diverticulosis. Lymph Nodes: No retroperitoneal, mesenteric, or inguinal lymphadenopathy. Vascular: No abdominal aortic aneurysm. The visualized arterial vasculature is patent. Soft Tissues: No acute abnormality. IMPRESSION: 1. Hepatic steatosis with hepatomegaly. 2. Otherwise, no CT evidence to explain the etiology of the patient's left lower quadrant pain. Dictated by: Aniket Mir M.D. on 07/30/2024 at 2:32 Approved by: Aniket Mir M.D. on 07/30/2024 at 2:37
[2024-07-30] MEDS: KETOROLAC 30 MG/ML VIAL 15 MG IV (01:03)
--- NOTE | 2024-07-30 01:30 | PC.NURSE ---
Pt ambulatory to restroom without difficulty or assistance.
[2024-07-30 01:35] LABS: Troponin I < 0.012 ng/mL (0.01-0.034)
== END 2024-07-30 02:53 | disposition home or self-care (01) ==
PROVIDERS: Emergency Provider Emergency Medicine; PCP Nurse Practitioner
DX: R07.89 Other chest pain (principal); R10.12 Left upper quadrant pain; I10 Essential (primary) hypertension
CPT/HCPCS: 36415; 71045; 74177; 80053; 82550; 83690; 83735; 83880; 84484; 85025; 85610; 85730; 93005; 96374; 99284; J1885; Q9967

== ENCOUNTER → 2024-10-19 08:36 | Outpatient (CLI) | payer OTHER, SELFPAY ==
[2023-05-19 13:43] VITALS: BMI 31.7
--- NOTE | 2024-10-19 08:38 | DI.MG.S_ITS ---
BILATERAL DIGITAL DIAGNOSTIC MAMMOGRAM 3D/2D: 10/19/2024 CLINICAL: Patient returns for a 6 month follow up of the left breast, due for bilateral exam. Comparison is made to exams dated: 02/06/2024 mammogram, 12/23/2022 mammogram, 11/18/2015 mammogram, 02/16/2024 ultrasound, and 07/20/2023 ultrasound - [facility]. The breasts are heterogeneously dense, which may obscure small masses (category c / 51-75% glandular tissue). There is an oval asymmetry in the left breast at 2 o'clock middle depth. This is less prominent. There also is an oval asymmetry in the left breast at 12 o'clock posterior depth. This is less prominent. No other significant masses, calcifications, or other findings are seen in either breast. IMPRESSION: INCOMPLETE: NEED ADDITIONAL IMAGING EVALUATION The oval asymmetry in the left breast at 2 o'clock middle depth is indeterminate. The oval asymmetry in the left breast at 12 o'clock posterior depth is indeterminate. A targeted ultrasound is recommended and will immediately follow. Based on the Tyrer Cuzick model (a risk assessment model) the patient's lifetime risk is 6.8% and her 10 year risk is 1.7%. According to the ACR, ACS, and NCCN guidelines, an annual breast MRI exam along with mammogram is recommended if the patient's lifetime risk is 20% or greater. This exam was interpreted at Station ID: [id number]. NOTE: For mammograms, a report in lay terms will be sent to the patient. Approximately 15% of breast malignancies will not be visualized mammographically. In the management of a palpable breast mass, a negative mammogram must not discourage biopsy of a clinically suspicious lesion. Electronically Signed By: Yomi Milton M.D. [facility] [place]10/19/2024 09:49:05 letter sent: Additional Imaging Needed ACR BI-RADS Category 0: Incomplete: Need Additional Imaging Evaluation
--- NOTE | 2024-10-19 08:38 | DI.US.S_ITS ---
LIMITED ULTRASOUND OF LEFT BREAST AND AXILLA: 10/19/2024 CLINICAL: 6 month follow-up of cysts. Comparison is made to exams dated: 10/19/2024 mammogram, 02/16/2024 ultrasound, 02/06/2024 ultrasound, 07/20/2023 ultrasound, 01/18/2023 ultrasound, and 01/18/2023 mammogram - [facility]. Color flow and real-time ultrasound of the left breast 2 o'clock, 12 o'clock, and axilla regions were performed. Linares scale images of the real-time examination were reviewed. There is a 0.9 cm x 0.7 cm x 0.6 cm oval complicated cyst in the left breast at 12 o'clock posterior depth 8 cm from the nipple. This oval complicated cyst is anechoic with a well-defined boundary, internal echoes, and posterior acoustic enhancement. This abnormality is not significantly changed. Color flow imaging demonstrates that there is no vascularity present. Additionally, there is a 1.5 cm x 0.9 cm x 0.5 cm oval complicated cyst with a septated internal wall in the left breast at 12 o'clock posterior depth 6 cm from the nipple. This oval complicated cyst is hypoechoic with posterior acoustic enhancement. This abnormality is increased in size and correlates with mammography findings. Color flow imaging demonstrates that there is no vascularity present. There also is a stable 0.8 cm x 0.5 cm x 0.4 cm round complicated cyst in the left breast at 2 o'clock middle depth 5 cm from the nipple. This round complicated cyst is hypoechoic. This correlates with mammography findings. Color flow imaging demonstrates that there is no vascularity present. No significant abnormalities were seen sonographically in the left axilla. IMPRESSION: PROBABLY BENIGN The 0.9 cm complicated cyst in the left breast at 12 o'clock 8 cm from the nipple is probably benign. The 1.5 cm complicated cyst in the left breast at 12 o'clock 6 cm from the nipple is probably benign. The 0.8 cm complicated cyst in the left breast at 2 o'clock 5 cm from the nipple is probably benign. A follow-up ultrasound in 6 months is recommended to demonstrate stability. Exam findings were conveyed to the patient. This exam was interpreted at Station ID: [id number]. Electronically Signed By: Yomi Milton M.D. [facility]/:10/19/2024 10:56:27 letter sent: Followup Recommended ACR BI-RADS Category 3: Probably Benign
== END ==
PROVIDERS: PCP Registered Nurse Diabetes Educator; Referring Provider Registered Nurse Diabetes Educator; Visit Provider Registered Nurse Diabetes Educator
DX: R92.8 Other abnormal and inconclusive findings on diagnostic imaging of breast (principal); R93.89 Abnormal findings on diagnostic imaging of other specified body structures; N60.02 Solitary cyst of left breast
CPT/HCPCS: 76642; 77066; G0279

== ENCOUNTER → 2024-11-13 07:42 | Outpatient (CLI) | payer OTHER, SELFPAY ==
[2023-05-19 13:43] VITALS: BMI 31.7
[2024-11-13 08:52] LABS: Creatinine Urine Random 95.01 mg/dL
[2024-11-13 08:56] LABS: Microalbumin Urine Random 3.6 mg/dL (0-1.6)
[2024-11-13 09:01] LABS: Hematocrit 41.4 % (36-46); Hemoglobin 13.7 g/dL (12.0-16.0); Mean Corpuscular HGB Conc 33.1 % (30-36); Mean Corpuscular Hemoglobin 26.9 PG (26-34); Mean Corpuscular Volume 81.3 fL (80-100); Platelet Count 276 X10^3/uL (150-400); Red Blood Cell Count 5.09 X10^6/uL (4.0-5.2); Red Cell Distribution Width 13.3 % (11.6-14.8); White Blood Cell Count 7.7 X10^3/uL (4.5-11.0)
[2024-11-13 09:22] LABS: Alanine Aminotransferase 50 IU/L (<35); Albumin Globulin Ratio 1.4 (1.0-2.8); Alkaline Phosphatase 138 U/L (38-126); Aspartate Aminotransferase 38 IU/L (14-36); BUN Creatinine Ratio 18.5 (6-22); Bilirubin Total 0.5 mg/dL (0.2-1.3); Blood Urea Nitrogen 10 mg/dL (7-17); Calcium 9.3 mg/dL (8.4-10.2); Carbon Dioxide 24 mmol/L (22-32); Chloride 103 mmol/L (98-107); Cholesterol 209 mg/dL (140-199); Estimated Glomerular Filt Rate > 60 mL/min (>60); Globulin 2.9 g/dL (1.7-4.1); Glucose 254 mg/dL (70-100); HDL Cholesterol 49 mg/dL (40-60); HEMOLYSIS < 15 (0-50); LDL Cholesterol Calculated 128 mg/dL (<100); Potassium 4.5 mmol/L (3.4-5.1); Sodium 134 mmol/L (137-145); Total Protein 6.9 g/dL (6.3-8.2); Triglycerides 159 mg/dL (35-150)
[2024-11-13 09:26] LABS: Hemoglobin A1C% w Est Avg Glu 10.7 % (4.0-6.0)
[2024-11-13 09:52] LABS: TSH w/ Reflex to FT4 3.24 uIU/mL (0.47-4.68)
== END ==
PROVIDERS: PCP Registered Nurse Diabetes Educator; Referring Provider Registered Nurse Diabetes Educator; Visit Provider Registered Nurse Diabetes Educator
DX: E11.69 Type 2 diabetes mellitus with other specified complication (principal); E78.5 Hyperlipidemia, unspecified; E03.9 Hypothyroidism, unspecified; K75.81 Nonalcoholic steatohepatitis (NASH); I10 Essential (primary) hypertension
CPT/HCPCS: 36415; 80053; 80061; 82043; 82570; 83036; 84443; 85027

== ENCOUNTER → 2025-01-29 07:11 | Outpatient (CLI) | payer OTHER, SELFPAY ==
[2023-05-19 13:43] VITALS: BMI 31.7
[2025-01-29 07:43] LABS: Appearance Urine UA CLEAR; Bilirubin Urine UA NEGATIVE (NEGATIVE); Color Urine UA YELLOW; Glucose Urine UA TRACE g/dL (Negative); Ketones Urine UA NEGATIVE (NEGATIVE); Leukocyte Esterase Urine UA NEGATIVE (NEGATIVE); Nitrite Urine UA NEGATIVE (Negative); Occult Blood Urine UA NEGATIVE (Negative); Protein Urine UA TRACE (Negative)
[2025-01-29 09:00] LABS: Bacteria Urine Occasional (0-1); RBC Urine None Seen (0-5/HPF); Squamous Epithelial Cell Urine >30 /HPF (0-5/HPF); Urine Volume 10mL (spun); WBC Urine 0-1/HPF (0-5/HPF)
[2025-01-29 09:01] LABS: Culture Indicated Urine Cult Not Indicated
== END ==
PROVIDERS: PCP Registered Nurse Diabetes Educator; Referring Provider Registered Nurse Diabetes Educator; Visit Provider Registered Nurse Diabetes Educator
DX: R30.9 Painful micturition, unspecified (principal); N89.8 Other specified noninflammatory disorders of vagina; R39.15 Urgency of urination
CPT/HCPCS: 81001

== ENCOUNTER → 2025-04-10 07:12 | Outpatient (CLI) | payer OTHER, SELFPAY ==
[2025-02-26 11:27] VITALS: BMI 31.7
[2025-04-10 08:32] LABS: Hemoglobin A1C% w Est Avg Glu 6.3 % (4.0-6.0)
[2025-04-10 08:38] LABS: Alanine Aminotransferase 40 IU/L (<35); Albumin 4.2 g/dL (3.5-5.0); Albumin Globulin Ratio 1.4 (1.0-2.8); Alkaline Phosphatase 102 U/L (38-126); Aspartate Aminotransferase 32 IU/L (14-36); BUN Creatinine Ratio 12.7 (6-22); Bilirubin Total 0.8 mg/dL (0.2-1.3); Blood Urea Nitrogen 9 mg/dL (7-17); Calcium 9.9 mg/dL (8.4-10.2); Carbon Dioxide 29 mmol/L (22-32); Chloride 102 mmol/L (98-107); Estimated Glomerular Filt Rate > 60 mL/min (>60); Globulin 3.1 g/dL (1.7-4.1); Glucose 115 mg/dL (70-99); HEMOLYSIS < 15 (0-50); Sodium 137 mmol/L (137-145); Total Protein 7.3 g/dL (6.3-8.2)
[2025-04-10 08:42] LABS: Potassium 5.4 mmol/L (3.4-5.1)
[2025-04-10 09:17] LABS: Creatinine Urine Random 161.47 mg/dL
[2025-04-10 09:25] LABS: Microalbumin Urine Random 2.3 mg/dL (0-1.6)
== END ==
PROVIDERS: PCP Registered Nurse Diabetes Educator; Referring Provider Registered Nurse Diabetes Educator; Visit Provider Registered Nurse Diabetes Educator
DX: R73.09 Other abnormal glucose (principal); K75.81 Nonalcoholic steatohepatitis (NASH); R80.9 Proteinuria, unspecified; I10 Essential (primary) hypertension
CPT/HCPCS: 36415; 80053; 82043; 82570; 83036

== ENCOUNTER → 2025-05-03 09:05 | Outpatient (CLI) | payer OTHER, SELFPAY ==
[2025-02-26 11:27] VITALS: BMI 31.7
--- NOTE | 2025-05-03 09:06 | DI.US.S_ITS ---
PROCEDURE: BREAST LT LIMITED COMPARISON: [facility], BREAST LT LIMITED, 02/16/2024, 14:13. [facility] BREAST LT LIMITED, 02/06/2024, 9:36. [facility] BREAST LT LIMITED, 07/20/2023, 9:27. [facility], BREAST LT LIMITED, 01/18/2023, 9:53. [facility] BREAST LT LIMITED, 10/19/2024, 9:27. INDICATIONS: f/u cyst left breast to demonstrate stability FINDINGS: IMPRESSION: Dictated by: Arina Yusuf M.D. on 05/03/2025 at 12:30 Approved by: Arina Yusuf M.D. on 05/03/2025 at 12:43
--- NOTE | 2025-05-03 09:20 | DI.US.S_ITS ---
Patient Name: ROMARIO LOCKHART date: 1975 Sex: F Attending Physician: Cipriano Indications: Date: 05/03/2025 12:43 At the request of: DOLORES MCKENZIE Procedure: US breast LT limited US breast LT limited: 05/03/2025. BI-RADS: 3 CLINICAL: 49-year old female for left diagnostic breast ultrasound that is a follow-up to ultrasound, left on 10/19/2024. Tyrer-Cuzick lifetime risk of 9.2%. No personal or first-degree family history of breast cancer. PRIOR EXAMS 10/19/2024, 02/16/2024, 02/06/2024, 07/20/2023, 01/18/2023, 12/23/2022, 11/18/2015. ULTRASOUND TECHNIQUE TARGETED Left Breast Ultrasound: Real-time ultrasound exam was performed focused to area of clinical and/or imaging concern. Real-time mosley scale and color doppler imaging of the area of clinical interest was performed with image documentation. ULTRASOUND FINDINGS Left: Upper Outer at 12:00, 8 cm from nipple, measuring 1.2 x 0.4 x 0.9 cm: There is a cluster of complicated cysts. This was previously labeled as 12 o'clock, 6 cm from the nipple, and appears to be unchanged when compared to the cine images from 01/19/2024. Left: Upper Outer at 2:00, 5 cm from nipple, measuring 0.5 x 0.2 x 0.9 cm - previously measuring (01/18/2023) 0.5 x 0.4 x 0.9 cm: There is a cluster of complicated cysts. This finding is essentially unchanged compared to the prior exams dating back to 01/18/2023, allowing for differences in technique. This finding has demonstrated two years of stability and is consistent with a benign etiology. Left: Upper at 12:00, 8 cm from nipple, measuring 0.8 x 0.6 x 0.7 cm - previously measuring (02/06/2024) 0.9 x 0.7 x 1.1 cm: Correlating with prior imaging concern simple anechoic cyst that has decreased in size. Continued Report - Page 2 of 2 Patient Name: ROMARIO LOCKHART date: 1975 Sex: F Attending Physician: Cipriano Indications: Date: 05/03/2025 12:43 At the request of: DOLORES MCKENZIE Procedure: US breast LT limited IMPRESSION: Left: Upper Outer at 12:00, 8 cm from nipple, measuring 1.2 x 0.4 x 0.9 cm * Probably Benign. RECOMMENDATIONS Left: Upper Outer at 12:00, 8 cm from nipple * Followup with diagnostic ultrasound in one year to demonstrate 2 year stability. Bilateral * Annual screening mammography in six months. COMMENTS: Findings and recommendations were conveyed to the patient during today's evaluation. OVERALL ASSESSMENT CATEGORY BI-RADS-3: Probably Benign. ELECTRONICALLY SIGNED: Arina Yusuf M.D. on 05/03/2025 at 12:43:12 PM PT Interpreting Station ID: [id number]
== END ==
LOC: US 09:06
PROVIDERS: PCP Registered Nurse Diabetes Educator; Referring Provider Registered Nurse Diabetes Educator; Visit Provider Registered Nurse Diabetes Educator
DX: R92.8 Other abnormal and inconclusive findings on diagnostic imaging of breast (principal); N60.02 Solitary cyst of left breast
CPT/HCPCS: 76642

== ENCOUNTER → 2025-07-29 07:06 | Outpatient (CLI) | payer OTHER, SELFPAY ==
[2025-02-26 11:27] VITALS: BMI 31.7
[2025-07-29 07:49] LABS: Hemoglobin A1C% w Est Avg Glu 6.3 % (4.0-6.0)
[2025-07-29 08:02] LABS: Alanine Aminotransferase 37 IU/L (<35); Albumin 4.2 g/dL (3.5-5.0); Albumin Globulin Ratio 1.4 (1.0-2.8); Alkaline Phosphatase 91 U/L (38-126); Blood Urea Nitrogen 12 mg/dL (7-17); Calcium 8.8 mg/dL (8.4-10.2); Carbon Dioxide 28 mmol/L (22-32); Chloride 103 mmol/L (98-107); Estimated Glomerular Filt Rate > 60 mL/min (>60); Globulin 3.1 g/dL (1.7-4.1); Glucose 131 mg/dL (70-99); HEMOLYSIS < 15 (0-50); Potassium 4.2 mmol/L (3.4-5.1); Sodium 137 mmol/L (137-145); Total Protein 7.3 g/dL (6.3-8.2)
== END ==
PROVIDERS: PCP Registered Nurse Diabetes Educator; Referring Provider Registered Nurse Diabetes Educator; Visit Provider Registered Nurse Diabetes Educator
DX: K76.0 Fatty (change of) liver, not elsewhere classified (principal); E11.9 Type 2 diabetes mellitus without complications; I10 Essential (primary) hypertension
CPT/HCPCS: 36415; 80053; 83036